=== PATIENT | male | born 1940 | race Caucasian/White ===

== ENCOUNTER 2017-06-26 10:07 | Inpatient (IN) | payer MEDICARE ==
[~2017-06-26] VITALS: Ht 172.7 cm; Wt 75.7 kg
[2017-06-26 08:59] VITALS: BP 164/77
[~2017-06-26 10:07] MED LIST: FOSINOPRIL SODI10 MG PO; LISINOPRIL10 MG PO; LOPID600 MG PO; SIMVASTATIN80 MG PO
--- NOTE | 2017-06-26 11:06 | Diagnostic Imaging Report ---
PROCEDURE: A single AP view of the chest. COMPARISON: Portable chest 04/23/2017. INDICATIONS: CARDIAC WORKUP FINDINGS: Lines/tubes: None. Lungs: No focal consolidation. No parenchymal mass. The lungs are hyperexpanded bilaterally. Nipple shadow projects over the left lung base. Pleura: There is no pleural effusion or pneumothorax. Heart and mediastinum: The heart and the mediastinum are unremarkable. Bones: No acute bony abnormality. Degenerative changes of the thoracic spine. Postoperative changes of the bilateral shoulders. IMPRESSION: No acute radiographic abnormality. Emphysematous changes. Dictated by: Fco Max M.D. on 06/26/2017 at 11:14 Electronically approved by: Fco Max M.D. on 06/26/2017 at 11:14
[2017-06-26 11:32] LABS: BASOPHILS # (AUTO) 0.1 (0.0-0.1); BASOPHILS % 1.1 % (0.0-1.0); EOSINOPHILS # (AUTO) 0.2 (0.0-0.4); EOSINOPHILS % 3.6 % (0.0-6.0); HEMATOCRIT 45.4 % (38.2-49.6); HEMOGLOBIN 14.8 g/dL (14.0-18.0); LYMPHOCYTES # (AUTO) 1.6 (1.0-3.2); LYMPHOCYTES % 24.2 % (18.0-39.1); MEAN CORPUSCULAR HEMOGLOBIN 31.8 pg (28-32); MEAN CORPUSCULAR HGB CONC 32.6 g/dL (31-35); MEAN CORPUSCULAR VOLUME 97.4 fL (81-99); MONOCYTES # (AUTO) 0.6 (0.2-0.8); MONOCYTES % 9.7 % (4.4-11.3); NEUTROPHILS # (AUTO) 4.1 (2.1-6.9); NEUTROPHILS % 61.1 % (38.7-80.0); PLATELET COUNT 207 x10e3/uL (140-360); RED BLOOD COUNT 4.66 x10e6/uL (4.3-5.7); RED CELL DISTRIBUTION WIDTH 13.2 % (11.7-14.4)
[2017-06-26 11:47] LABS: INR 0.89; PARTIAL THROMBOPLASTIN TIME 26.9 seconds (23.8-35.5); PROTHROMBIN TIME 12.5 seconds (11.9-14.5)
[2017-06-26 11:59] LABS: ALBUMIN 3.9 g/dL (3.5-5.0); ANION GAP 14.4 mmol/L (8-16); CALCIUM 9.3 mg/dL (8.4-10.2); CREATININE, SERUM 1.34 mg/dL (0.72-1.25); POTASSIUM 4.4 mmol/L (3.5-5.1)
[2017-06-26 12:09] LABS: CREATINE KINASE MB 3.1 ng/mL (0.00-5.00); TROPONIN I 0.023 ng/mL (0-0.300)
[2017-06-26] MEDS ORDERED: MORPHINE SULFATE 2 MG/ML SYR IV STA (12:29)
[2017-06-26] MEDS ORDERED: ONDANSETRON HCL INJ 2 MG/ML VIAL IV STA (12:29)
[2017-06-26] MEDS ORDERED: METFORMIN HCL500 MG PO ×2 (12:56)
[2017-06-26] MEDS ORDERED: ASPIR 8181 MG PO (12:56)
[2017-06-26] MEDS ORDERED: ATORVASTATIN CA20 MG PO (12:56)
[2017-06-26] MEDS ORDERED: GABAPENTIN100 MG PO (12:56)
[2017-06-26] MEDS ORDERED: HEPARIN 25,000U/0.45% NS 250ML 1,300 UNIT in SODIUM CHLORIDE 0.9% 250ML 0 ML IV SCH (15:00)
[2017-06-26] MEDS ORDERED: HEPARIN SOD (PORCINE) 5,000 UNIT/ML VIAL IV ONE (15:00)
[2017-06-26] MEDS ORDERED: HEPARIN 25,000U/0.45% NS 250ML 250 ML IV SCH (15:15)
[2017-06-26] MEDS ORDERED: DEXTROSE 50% SYRINGE 50 ML IV PRN (15:45)
[2017-06-26] MEDS ORDERED: ONDANSETRON HCL INJ 2 MG/ML VIAL IV PRN (15:45)
[2017-06-26] MEDS: HEPARIN 25,000U/0.45% NS 250ML 1,300 UNIT in SODIUM CHLORIDE 0.9% 250ML 0 ML IV SCH (15:47)
--- NOTE | 2017-06-26 16:01 | Consultation ---
DATE OF CONSULTATION: June 26, 2017 CARDIOLOGY CONSULTATION REQUESTING PHYSICIAN: Dr. Carrillo REASON FOR CONSULTATION: Peripheral arterial disease. HISTORY OF PRESENT ILLNESS: This is a 76-year-old man with severe peripheral arterial disease who presents with left leg pain. He reports that he had a fall 2 weeks ago after which he developed pain in his left leg followed by coolness as well as worsening discoloration. He denies any chest pain, shortness of breath, palpitations, edema, orthopnea or PND. Bilateral lower extremity arterial Doppler done in the ER revealed complete occlusion of his left SFA stent with distal reconstitution. PAST MEDICAL HISTORY 1. Peripheral arterial disease. 2. Diabetes mellitus. 3. Hyperlipidemia. 4. Hypertension. 5. COPD. ALLERGIES: NO KNOWN DRUG ALLERGIES. MEDICATIONS: Please see medication list. SOCIAL HISTORY: He quit smoking this year. No alcohol. FAMILY HISTORY: Noncontributory. PHYSICAL EXAMINATION: VITAL SIGNS: Temperature 96.8 degrees, pulse 80, respiratory rate 16, blood pressure 175/83, oxygen saturation 99% on room air. GENERAL: Awake, well-developed, well-nourished man in no acute distress. HEENT: Normocephalic and atraumatic. Pupils are equal. No scleral icterus. NECK: Supple. No thyromegaly or cervical lymphadenopathy. No carotid bruit. LUNGS: Clear to auscultation bilaterally. No wheezes or crackles. CARDIOVASCULAR: Normal rate, regular rhythm. No murmur. Normal S1 and S2. ABDOMEN: Soft. Nontender and nondistended. EXTREMITIES: No edema. Left lower extremity below the knee is slightly cool to palpation. There is marked erythema of the left forefoot with some changes concerning for early gangrene on the left 4th digit. LABS: WBC 6.6, hemoglobin 14.8, hematocrit 45.4, platelets 207. Sodium 139, potassium 4.4, chloride 107, CO2 22, BUN 28, creatinine 1.34. EKG: Sinus arrhythmia with right bundle-branch block. CHEST X-RAY: No acute radiographic abnormality. Emphysematous changes. IMPRESSION 1. Critical limb ischemia of the left lower extremity. 2. Peripheral arterial disease with 50% to 74% stenosis of the right popliteal artery as well as occlusion of the left superficial femoral artery stent with distal reconstitution suggested by noninvasive Doppler evaluation. 3. Hypertension. 4. Diabetes mellitus. 5. Hyperlipidemia. 6. Chronic obstructive pulmonary disease. RECOMMENDATIONS: Start heparin drip. Plan for peripheral angiogram tomorrow. In the meantime, continue home cardiac medications. Hold metformin, given need for contrast. Job#: [id number]
[2017-06-26] MEDS: SODIUM CHLORIDE 0.9% 1000ML 1,000 ML IV SCH ×2 (18:03→23:33)
[2017-06-26] MEDS: MORPHINE SULFATE 5 MG/ML VIAL IV PRN (20:21)
[2017-06-26 20:52] VITALS: BP 164/77
[2017-06-27] VITALS (21 sets, daily range): BP systolic 102–168; BP diastolic 55–91
[2017-06-27] MEDS: MORPHINE SULFATE 5 MG/ML VIAL IV PRN ×2 (00:49→06:22)
[2017-06-27 06:58] LABS: BASOPHILS # (AUTO) 0.1 (0.0-0.1); BASOPHILS % 1.2 % (0.0-1.0); EOSINOPHILS # (AUTO) 0.2 (0.0-0.4); HEMOGLOBIN 14.1 g/dL (14.0-18.0); LYMPHOCYTES # (AUTO) 1.9 (1.0-3.2); LYMPHOCYTES % 28.6 % (18.0-39.1); MEAN CORPUSCULAR HEMOGLOBIN 31.4 pg (28-32); MEAN CORPUSCULAR HGB CONC 32.8 g/dL (31-35); MEAN CORPUSCULAR VOLUME 95.8 fL (81-99); MONOCYTES # (AUTO) 0.7 (0.2-0.8); MONOCYTES % 10.4 % (4.4-11.3); NEUTROPHILS # (AUTO) 3.8 (2.1-6.9); NEUTROPHILS % 56.5 % (38.7-80.0); PLATELET COUNT 195 x10e3/uL (140-360); RED BLOOD COUNT 4.49 x10e6/uL (4.3-5.7); RED CELL DISTRIBUTION WIDTH 13.2 % (11.7-14.4)
[2017-06-27 07:24] LABS: ANION GAP 15.9 mmol/L (8-16); BLOOD UREA NITROGEN 25 mg/dL (7-26); BUN/CREATININE RATIO 24 (6-25); CALCIUM 8.7 mg/dL (8.4-10.2); CARBON DIOXIDE 19 mmol/L (22-29); CHLORIDE 108 mmol/L (98-107); CREATININE, SERUM 1.06 mg/dL (0.72-1.25); EST GLOMERULAR FILTRATION RATE > 60 ML/MIN (60-); GLUCOSE 127 mg/dL (74-118); POTASSIUM 4.9 mmol/L (3.5-5.1); SODIUM 138 mmol/L (136-145)
[2017-06-27] MEDS: SODIUM CHLORIDE 0.9% 1000ML 1,000 ML IV SCH ×5 (08:36→20:09)
[2017-06-27] MEDS ORDERED: GABAPENTIN 100 MG CAP PO PRN (12:45)
[2017-06-27] MEDS ORDERED: LIDOCAINE HCL 2% LOCAL 20 ML VIAL ONE (13:32)
[2017-06-27] MEDS ORDERED: HEPARIN SOD/SOD CHLORIDE 2,000 ML ONE (13:32)
[2017-06-27] MEDS ORDERED: IOPAMIDOL 370 MG/ML 200 ML INFUS..BTL INJ ONE (13:33)
[2017-06-27] MEDS ORDERED: MIDAZOLAM HCL 2 MG/2 ML VIAL ONE (13:42)
[2017-06-27] MEDS ORDERED: FENTANYL CITRATE/PF 100MCG/2 ML INJ ONE (13:42)
[2017-06-27] MEDS ORDERED: HEPARIN SOD (PORCINE) 1000 UNIT/ML 30ML ONE (13:42)
[2017-06-27] MEDS ORDERED: ALTEPLASE 50 MG/VIAL (29 MILLION IU) IV ONE ×2 (14:06→14:15)
--- NOTE | 2017-06-27 15:24 | Operative Report ---
DATE OF PROCEDURE: June 27, 2017 INDICATIONS: Peripheral arterial disease with acute limb ischemia of the left lower extremity. PROCEDURES PERFORMED: 1. Abdominal aorta catheter placement and abdominal aortogram. 2. Third order catheter placement in the right femoral artery and left superficial femoral artery and lateral extremity angiogram. 3. Primary thrombectomy of the left superficial femoral artery. 4. Initiation of the left femoral artery transcatheter lysis. COMPLICATIONS: None. RECOMMENDATIONS: Overnight lysis with reassessment and reperfusion and definitive therapy for in-stent re-stenosis of the left femoral artery stent. Access obtained in the right femoral artery. A 6-Maltese sheath was placed. Abdominal aortogram demonstrated large abdominal aortic aneurysm. Iliac arteries had mild disease. Left femoral artery appeared to be occluded. The catheter was then advanced in the right femoral artery and left superficial femoral artery stent. Thrombosis of the left femoral artery stent was noted. Infrapopliteal vessels not well seen. The decision was made to intervene on the left femoral artery stent thrombosis. The sheath was exchanged to a 6-Maltese 45 cm sheath advanced in the right femoral artery, left superficial femoral artery. The thrombosed lesions were aspirated with primary thrombectomy. A trans catheter lysis catheter was introduced with initiation of 10 mg of intra-arterial tPA bolus followed by 0.5 mg of tPA per hour along with intra-arterial heparin. The sheath and the catheter were secured in place. Patient transferred to ICU in stable condition. Job#: [id number]
[2017-06-27] MEDS ORDERED: SODIUM CHLORIDE 0.9% IV PRN ×7 (16:15→16:30)
[2017-06-27] MEDS ORDERED: ALTEPLASE RECOMBINANT IV PRN ×7 (16:15→16:30)
[2017-06-27] MEDS ORDERED: HYDRALAZINE HCL 20 MG/ML VIAL IV PRN (16:30)
[2017-06-27] MEDS ORDERED: PROMETHAZINE 12.5MG/ NACL 0.9% 12.5 MG/50 ML BAG IV PRN (16:30)
[2017-06-27] MEDS ORDERED: HYDROMORPHONE 1MG/1ML INJ IV PRN (16:30)
[2017-06-27] MEDS: GEMFIBROZIL 600 MG TAB PO SCH (17:46)
[2017-06-27] MEDS: HEPARIN 25,000U/0.45% NS 250ML 1,300 UNIT in SODIUM CHLORIDE 0.9% 250ML 0 ML IV SCH (17:46)
[2017-06-27 18:41] LABS: BASOPHILS # (AUTO) 0.1 (0.0-0.1); EOSINOPHILS # (AUTO) 0.1 (0.0-0.4); EOSINOPHILS % 2.1 % (0.0-6.0); HEMATOCRIT 42.3 % (38.2-49.6); LYMPHOCYTES # (AUTO) 1.5 (1.0-3.2); LYMPHOCYTES % 23.8 % (18.0-39.1); MEAN CORPUSCULAR HEMOGLOBIN 31.5 pg (28-32); MEAN CORPUSCULAR HGB CONC 33.1 g/dL (31-35); MEAN CORPUSCULAR VOLUME 95.1 fL (81-99); MONOCYTES # (AUTO) 0.7 (0.2-0.8); MONOCYTES % 10.5 % (4.4-11.3); NEUTROPHILS # (AUTO) 3.9 (2.1-6.9); NEUTROPHILS % 62.3 % (38.7-80.0); PLATELET COUNT 203 x10e3/uL (140-360); RED BLOOD COUNT 4.45 x10e6/uL (4.3-5.7); RED CELL DISTRIBUTION WIDTH 13.5 % (11.7-14.4)
[2017-06-27] MEDS: METFORMIN HCL 500 MG TAB PO SCH (20:09)
[2017-06-27] MEDS: ATORVASTATIN 40 MG TAB PO SCH (20:09)
[2017-06-27] MEDS: HYDROMORPHONE 2MG/ML INJ IV PRN ×2 (20:21→22:54)
[2017-06-27] MEDS ORDERED: ATORVASTATIN 20 MG TAB PO SCH (21:00)
[2017-06-27 21:24] LABS: INR 0.98; PROTHROMBIN TIME 13.5 seconds (11.9-14.5)
[2017-06-27 21:29] LABS: PARTIAL THROMBOPLASTIN TIME 128.9 seconds (23.8-35.5)
[2017-06-28] VITALS (49 sets, daily range): BP systolic 105–178; BP diastolic 61–123
[2017-06-28] MEDS: HYDROMORPHONE 2MG/ML INJ IV PRN ×5 (01:13→23:23)
[2017-06-28 06:01] LABS: BASOPHILS % 0.5 % (0.0-1.0); EOSINOPHILS # (AUTO) 0.1 (0.0-0.4); EOSINOPHILS % 1.3 % (0.0-6.0); HEMATOCRIT 41.5 % (38.2-49.6); HEMOGLOBIN 13.7 g/dL (14.0-18.0); LYMPHOCYTES # (AUTO) 1.3 (1.0-3.2); LYMPHOCYTES % 17.5 % (18.0-39.1); MEAN CORPUSCULAR HEMOGLOBIN 31.9 pg (28-32); MEAN CORPUSCULAR VOLUME 96.5 fL (81-99); MONOCYTES # (AUTO) 0.7 (0.2-0.8); MONOCYTES % 9.1 % (4.4-11.3); NEUTROPHILS # (AUTO) 5.3 (2.1-6.9); NEUTROPHILS % 71.2 % (38.7-80.0); PLATELET COUNT 186 x10e3/uL (140-360); RED CELL DISTRIBUTION WIDTH 13.2 % (11.7-14.4)
[2017-06-28 06:13] LABS: INR 1.01; PROTHROMBIN TIME 13.8 seconds (11.9-14.5)
[2017-06-28 06:28] LABS: BLOOD UREA NITROGEN 22 mg/dL (7-26); BUN/CREATININE RATIO 21 (6-25); CALCIUM 8.6 mg/dL (8.4-10.2); CARBON DIOXIDE 18 mmol/L (22-29); CHLORIDE 108 mmol/L (98-107); CREATININE, SERUM 1.07 mg/dL (0.72-1.25); EST GLOMERULAR FILTRATION RATE > 60 ML/MIN (60-); GLUCOSE 142 mg/dL (74-118); SODIUM 138 mmol/L (136-145)
[2017-06-28] MEDS: GEMFIBROZIL 600 MG TAB PO SCH ×2 (07:30→16:30)
[2017-06-28] MEDS: MORPHINE SULFATE 5 MG/ML VIAL IV PRN ×3 (08:30→21:54)
[2017-06-28] MEDS ORDERED: SIMVASTATIN 80 MG TAB PO SCH (09:00)
[2017-06-28] MEDS: ASPIRIN 81 MG CHEW TAB PO SCH (09:00)
[2017-06-28] MEDS: METFORMIN HCL 500 MG TAB PO SCH ×2 (09:00→21:50)
[2017-06-28] MEDS: FOSINOPRIL SODIUM 10 MG TAB PO SCH (09:00)
[2017-06-28] MEDS ORDERED: DIPHENHYDRAMINE HCL INJ 1 ML ONE (09:43)
[2017-06-28] MEDS ORDERED: DIPHENHYDRAMINE HCL INJ 50 MG/ML VIAL IV ONE (10:00)
[2017-06-28] MEDS: SODIUM CHLORIDE 0.9% 1000ML 1,000 ML IV SCH (10:21)
--- NOTE | 2017-06-28 11:25 | Progress Note ---
DATE: June 28, 2017 CARDIOLOGY PROGRESS NOTE SUBJECTIVE: Patient denies chest pain or shortness of breath. He underwent peripheral angiogram by Dr. Azam Gipson yesterday with primary thrombectomy of the left superficial femoral artery as well as initiation of left femoral artery transcatheter lysis. OBJECTIVE VITAL SIGNS: Temperature 97.8 degrees, pulse 79, respiratory rate 18, blood pressure 143/77, oxygen saturation 96% on room air. GENERAL: Awake, alert, in no acute distress. LUNGS: Clear to auscultation bilaterally. No wheezes or crackles. CARDIOVASCULAR: Normal rate, regular rhythm. No murmur. Normal S1 and S2. ABDOMEN: Soft. Nontender. EXTREMITIES: No edema. Bilateral lower extremities are warm to palpation. He continues to have discoloration of the left forefoot and toes. CARDIAC MEDICATIONS 1. Atorvastatin 80 mg p.o. nightly. 2. Lisinopril 10 mg p.o. daily. 3. Aspirin 81 mg p.o. daily. 4. Heparin drip. 5. TPA. LABS: WBC 7.4, hemoglobin 13.7, hematocrit 41.5, platelets 186. Sodium 138, potassium 5, chloride 108, CO2 18, BUN 22, creatinine 1.07. TELEMETRY: Normal sinus rhythm. IMPRESSION 1. Critical limb ischemia of the left lower extremity, status post transcatheter lysis of occluded left superficial femoral artery stent. 2. Peripheral arterial disease with 50% to 74% stenosis of the right popliteal artery suggested by noninvasive Doppler evaluation. 3. Hypertension. 4. Diabetes mellitus. 5. Hyperlipidemia. 6. Chronic obstructive pulmonary disease. RECOMMENDATIONS: Continue heparin drip as well as tPA. Plan for peripheral angiogram today to assess response to transcatheter lysis. Continue current cardiac medications otherwise. Thank you for this consult. We will continue to follow. Job#: [id number]
[2017-06-28] MEDS ORDERED: HEPARIN SOD/SOD CHLORIDE 2,000 ML ONE (15:37)
[2017-06-28] MEDS ORDERED: LIDOCAINE HCL 2% LOCAL 20 ML VIAL ONE (15:37)
[2017-06-28] MEDS ORDERED: IOPAMIDOL 370 MG/ML 200 ML INFUS..BTL INJ ONE (15:38)
[2017-06-28] MEDS ORDERED: FENTANYL CITRATE/PF 100MCG/2 ML INJ ONE (15:38)
[2017-06-28] MEDS ORDERED: MIDAZOLAM HCL 2 MG/2 ML VIAL ONE (15:39)
[2017-06-28] MEDS ORDERED: NITROGLYCERIN/D5W 200 MCG/ML 250 ML ONE (15:54)
[2017-06-28] MEDS ORDERED: HEPARIN SOD (PORCINE) 1000 UNIT/ML 30ML ONE (15:57)
[2017-06-28] MEDS ORDERED: IOPAMIDOL 300MG/ML 50ML INFUS..BTL IV ONE (16:20)
[2017-06-28] MEDS: HEPARIN 25,000U/0.45% NS 250ML 1,300 UNIT in SODIUM CHLORIDE 0.9% 250ML 0 ML IV SCH (17:16)
[2017-06-28] MEDS: ATORVASTATIN 40 MG TAB PO SCH (21:50)
[2017-06-28] MEDS: DIPHENHYDRAMINE HCL INJ 50 MG/ML VIAL IV PRN (23:36)
[2017-06-28] MEDS ORDERED: ARTIFICIAL TEARS (OPTH) 15 ML BTL OU PRN (23:45)
[2017-06-29] VITALS (23 sets, daily range): BP systolic 118–164; BP diastolic 59–91
[2017-06-29] MEDS: HYDROMORPHONE 2MG/ML INJ IV PRN ×6 (02:59→23:56)
[2017-06-29] MEDS: DIPHENHYDRAMINE HCL INJ 50 MG/ML VIAL IV PRN ×2 (06:44→12:22)
[2017-06-29] MEDS: METFORMIN HCL 500 MG TAB PO SCH ×2 (08:19→20:16)
[2017-06-29] MEDS: ASPIRIN 81 MG CHEW TAB PO SCH (08:19)
[2017-06-29] MEDS: GEMFIBROZIL 600 MG TAB PO SCH ×2 (08:19→16:15)
[2017-06-29] MEDS: HEPARIN 25,000U/0.45% NS 250ML 1,300 UNIT in SODIUM CHLORIDE 0.9% 250ML 0 ML IV SCH (08:19)
[2017-06-29] MEDS: FOSINOPRIL SODIUM 10 MG TAB PO SCH (09:00)
[2017-06-29 09:16] LABS: BASOPHILS % 0.5 % (0.0-1.0); EOSINOPHILS # (AUTO) 0.1 (0.0-0.4); EOSINOPHILS % 1.6 % (0.0-6.0); HEMATOCRIT 34.5 % (38.2-49.6); HEMOGLOBIN 11.7 g/dL (14.0-18.0); LYMPHOCYTES # (AUTO) 1.2 (1.0-3.2); LYMPHOCYTES % 18.8 % (18.0-39.1); MEAN CORPUSCULAR HEMOGLOBIN 32.1 pg (28-32); MEAN CORPUSCULAR HGB CONC 33.9 g/dL (31-35); MEAN CORPUSCULAR VOLUME 94.5 fL (81-99); MONOCYTES # (AUTO) 0.8 (0.2-0.8); MONOCYTES % 12.3 % (4.4-11.3); NEUTROPHILS # (AUTO) 4.3 (2.1-6.9); NEUTROPHILS % 66.5 % (38.7-80.0); PLATELET COUNT 153 x10e3/uL (140-360); RED BLOOD COUNT 3.65 x10e6/uL (4.3-5.7); RED CELL DISTRIBUTION WIDTH 13.2 % (11.7-14.4)
[2017-06-29 09:25] LABS: INR 1.01; PROTHROMBIN TIME 13.8 seconds (11.9-14.5)
[2017-06-29 09:26] LABS: PARTIAL THROMBOPLASTIN TIME 31.3 seconds (23.8-35.5)
[2017-06-29 09:34] LABS: ALANINE AMINOTRANSFERASE 13 IU/L (0-55); ALBUMIN 3.1 g/dL (3.5-5.0); ALBUMIN/GLOBULIN RATIO 1.2 (0.8-2.0); ALKALINE PHOSPHATASE 78 IU/L (40-150); ANION GAP 13.3 mmol/L (8-16); BLOOD UREA NITROGEN 18 mg/dL (7-26); BUN/CREATININE RATIO 19 (6-25); CALCIUM 8.2 mg/dL (8.4-10.2); CARBON DIOXIDE 20 mmol/L (22-29); CHLORIDE 108 mmol/L (98-107); CREATININE, SERUM 0.95 mg/dL (0.72-1.25); EST GLOMERULAR FILTRATION RATE > 60 ML/MIN (60-); GLUCOSE 152 mg/dL (74-118); POTASSIUM 4.3 mmol/L (3.5-5.1); SODIUM 137 mmol/L (136-145)
--- NOTE | 2017-06-29 12:26 | Progress Note ---
DATE: June 29, 2017 CARDIOLOGY PROGRESS NOTE SUBJECTIVE: Patient denies chest pain or shortness of breath. He reports his foot feels better. He underwent repeat peripheral angiogram yesterday with balloon angioplasty of the left SFA, popliteal and peroneal arteries. OBJECTIVE VITAL SIGNS: Temperature 98.9 degrees, pulse 57, respiratory rate 18, blood pressure 143/82, oxygen saturation 98% on room air. GENERAL: Awake, alert, in no acute distress. LUNGS: Clear to auscultation bilaterally. No wheezes or crackles. CARDIOVASCULAR: Normal rate, regular rhythm. No murmur. Normal S1 and S2. ABDOMEN: Soft, nontender. EXTREMITIES: No edema. Left lower extremity is warm to palpation. He continues to have discoloration of the toes on the left foot. Right groin soft without hematoma or bruit. Some ecchymoses are noted. CARDIAC MEDICATIONS 1. Gemfibrozil 600 mg p.o. b.i.d. 2. Aspirin 81 mg p.o. daily. 3. Atorvastatin 80 mg p.o. nightly. 4. Lisinopril 10 mg p.o. daily. LABS: Sodium 137, potassium 4.3, chloride 108, CO2 20, BUN 18, creatinine 0.95. WBC 6.4, hemoglobin 11.7, hematocrit 34.5, platelets 153. TELEMETRY: Normal sinus rhythm. IMPRESSION 1. Critical limb ischemia of the left lower extremity status post transcatheter lysis of occluded left superficial femoral artery stent. 2. Peripheral arterial disease with 50% to 74% stenosis of the right popliteal artery suggested by noninvasive Doppler evaluation. 3. Hypertension. 4. Diabetes mellitus. 5. Hyperlipidemia. 6. Chronic obstructive pulmonary disease. RECOMMENDATIONS: Start Xarelto. Continue antiplatelet therapy. Continue remainder of patient's cardiac medications. He may be transferred out of the ICU. PT evaluation given patient's indicates he has had prior falls in the past. Thank you for this consult. We will continue to follow. Job#: [id number] EFRA
--- NOTE | 2017-06-29 14:27 | Operative Report ---
DATE OF PROCEDURE: June 28, 2017 PROCEDURES PERFORMED: 1. Third-order catheter placement with unilateral extremity angiogram. 2. Primary thrombectomy of the left femoral artery. 3. Removal of lysis catheter. 4. Angioplasty of the left femoral artery. 5. Angioplasty of the peroneal artery. COMPLICATIONS: None. INDICATIONS: Peripheral arterial disease with acute limb ischemia. BLOOD LOSS: 50 mL. RECOMMENDATIONS: Xarelto and Plavix for anticoagulation. Existing sheath was used for angiogram from the right femoral artery to the left superficial femoral artery with yazdanism of flow. However, residual thrombus was noted in the femoral artery, for which primary thrombectomy with aspiration was performed. The lysis catheter was removed. Balloon angioplasty using a 2.0 as well as a 2.5 mm balloon in the left peroneal artery was performed. Drug-coated balloon angioplasty using a 4 mm balloon in the left femoral and popliteal arteries was performed. Excellent 1-vessel runoff was noted to the peroneal artery, which then reconstituted in the posterior tibial artery with the vessels to the left foot. Right groin sheath was exchanged to a short 6-Serbian sheath that was secured in place for removal under manual pressure. Patient transferred to ICU in stable condition. Job#: [id number] EV
[2017-06-29] MEDS: SODIUM CHLORIDE 0.9% 1000ML 1,000 ML IV SCH (15:32)
[2017-06-29] MEDS: RIVAROXABAN 15 MG TABLET PO SCH (16:15)
[2017-06-29] MEDS: ATORVASTATIN 40 MG TAB PO SCH (20:16)
[2017-06-30] VITALS (7 sets, daily range): BP systolic 116–159; BP diastolic 52–75
[2017-06-30] MEDS: DIPHENHYDRAMINE HCL INJ 50 MG/ML VIAL IV PRN ×2 (00:53→09:25)
[2017-06-30] MEDS: SODIUM CHLORIDE 0.9% 1000ML 1,000 ML IV SCH (00:53)
[2017-06-30 08:06] LABS: ANION GAP 11.2 mmol/L (8-16); BLOOD UREA NITROGEN 15 mg/dL (7-26); BUN/CREATININE RATIO 16 (6-25); CARBON DIOXIDE 24 mmol/L (22-29); CHLORIDE 108 mmol/L (98-107); CREATININE, SERUM 0.91 mg/dL (0.72-1.25); EST GLOMERULAR FILTRATION RATE > 60 ML/MIN (60-); GLUCOSE 130 mg/dL (74-118); POTASSIUM 4.2 mmol/L (3.5-5.1); SODIUM 139 mmol/L (136-145)
[2017-06-30] MEDS: ASPIRIN 81 MG CHEW TAB PO SCH (09:24)
[2017-06-30] MEDS: GEMFIBROZIL 600 MG TAB PO SCH ×2 (09:24→17:21)
[2017-06-30] MEDS: METFORMIN HCL 500 MG TAB PO SCH ×2 (09:24→20:17)
[2017-06-30] MEDS: FOSINOPRIL SODIUM 10 MG TAB PO SCH (09:24)
[2017-06-30] MEDS: MORPHINE SULFATE 5 MG/ML VIAL IV PRN (09:25)
--- NOTE | 2017-06-30 11:25 | Diagnostic Imaging Report ---
Portable chest x-ray CPT code 10279 INDICATION: CHF/COPD COMPARISON: Chest x-ray 04/23/2017, chest x-ray 06/26/2017 FINDINGS: Frontal view of the chest obtained at 0852 hours. The cardiac silhouette is top normal in size. Aortic ectasia is stable. The pulmonary vascular marking are normal. Calcified hilar lymph nodes are stable. The lungs demonstrate diffuse hyperinflation. A vertical line across the lateral left chest could be a skinfold. There is no evidence of discrete mass or infiltrate. A granuloma in the left lower lobe is stable. The costophrenic angles are sharp. The osseous structures are stable with 3 anchors in the right humeral head. IMPRESSION: 1. Potential skin fold across the left chest. Recommend repeat imaging for confirmation and to exclude pneumothorax. 2. Pulmonary hyperinflation consistent with COPD. 3. No evidence of CHF. Signed by: Dr. Frandy Willson MD on 06/30/2017 11:21 AM
[2017-06-30] MEDS: CLOPIDOGREL BISULFATE 75 MG TAB PO SCH (11:45)
--- NOTE | 2017-06-30 14:53 | Progress Note ---
DATE: CARDIOLOGY PROGRESS NOTE SUBJECTIVE: Patient reports pain in his legs. Otherwise, any chest pain or shortness of breath. OBJECTIVE VITAL SIGNS: Temperature 98.6, pulse 84, respiratory rate 18, blood pressure 137/65, oxygen saturation 96% on room air. GENERAL: Alert and oriented times 3. Resting comfortably in bed. Does not appear to be in any acute distress. is at the bedside. LUNGS: Diminished breath sounds in the posterior lower lobes. Otherwise, clear to auscultation. No wheezing. No rhonchi or crackles. CARDIOVASCULAR: Normal regular rate and rhythm. Normal S1 and S2. ABDOMEN: Rounded, soft and nontender. LOWER EXTREMITIES: Two plus pitting edema. One plus pedal pulses bilateral lower extremities. Warm to touch bilaterally. Discoloration to the toes on the left foot. Ecchymosis noted around the right groin. Otherwise, no obvious signs of bleeding. CARDIOVASCULAR MEDICATIONS 1. 200 mg p.o. b.i.d. 2. Hydralazine 20 mg q.2 h. p.r.n. for hypertension. 3. 50 mg p.o. daily. 4. Atorvastatin 80 p.o. at night. 5. Aspirin 81 p.o. daily. 6. Gemfibrozil 600 mg p.o. b.i.d. 7. Monopril 10 mg p.o. daily. LABS WBC 6.42, hemoglobin 11.7, hematocrit 34.5, and platelets 153,000. Sodium 139, potassium 4.2, BUN 15, creatinine 0.91, GFR greater than 60. Calcium 8. Telemetry is sinus rhythm. IMPRESSION 1. Critical limb ischemia on the left lower extremity: Status post transcatheter lysis of occluded left superficial femoral artery stent. 2. Peripheral arterial disease with 50% to 70% stenosis in the right popliteal artery. 3. Hypertension. 4. Diabetes mellitus. 5. Hyperlipidemia. 6. Chronic obstructive pulmonary disease. RECOMMENDATIONS: Continue with the above list of cardiac medications. Continue antiplatelet therapy and the rest of the above list of cardiac medications. Assess the patient for rehabilitation per the request of his . He has had multiple falls at home. He is unable to perform his own ADLs. Will continue to follow closely. DICTATED BY JIM TRIPP NP Job#: [id number] RI
[2017-06-30] MEDS: RIVAROXABAN 15 MG TABLET PO SCH (17:22)
[2017-06-30] MEDS: ATORVASTATIN 40 MG TAB PO SCH (20:17)
[2017-06-30] MEDS: HYDROMORPHONE 2MG/ML INJ IV PRN (23:26)
[2017-07-01 05:13] VITALS: BP 123/68
[2017-07-01] MEDS: GEMFIBROZIL 600 MG TAB PO SCH (07:30)
[2017-07-01 08:20] VITALS: BP 104/94
[2017-07-01 08:57] LABS: BASOPHILS % 0.8 % (0.0-1.0); EOSINOPHILS # (AUTO) 0.2 (0.0-0.4); HEMATOCRIT 34.8 % (38.2-49.6); HEMOGLOBIN 11.3 g/dL (14.0-18.0); LYMPHOCYTES # (AUTO) 0.9 (1.0-3.2); LYMPHOCYTES % 18.7 % (18.0-39.1); MEAN CORPUSCULAR HEMOGLOBIN 31.1 pg (28-32); MEAN CORPUSCULAR HGB CONC 32.5 g/dL (31-35); MEAN CORPUSCULAR VOLUME 95.9 fL (81-99); MONOCYTES # (AUTO) 0.6 (0.2-0.8); MONOCYTES % 11.7 % (4.4-11.3); NEUTROPHILS # (AUTO) 3.1 (2.1-6.9); NEUTROPHILS % 64.4 % (38.7-80.0); PLATELET COUNT 183 x10e3/uL (140-360); RED BLOOD COUNT 3.63 x10e6/uL (4.3-5.7); RED CELL DISTRIBUTION WIDTH 13.3 % (11.7-14.4)
[2017-07-01] MEDS: CLOPIDOGREL BISULFATE 75 MG TAB PO SCH (09:00)
[2017-07-01] MEDS: METFORMIN HCL 500 MG TAB PO SCH (09:00)
[2017-07-01] MEDS: ASPIRIN 81 MG CHEW TAB PO SCH (09:00)
[2017-07-01] MEDS: FOSINOPRIL SODIUM 10 MG TAB PO SCH (09:00)
[2017-07-01 09:10] LABS: ALANINE AMINOTRANSFERASE 17 IU/L (0-55); ALBUMIN 3.2 g/dL (3.5-5.0); ALBUMIN/GLOBULIN RATIO 1.1 (0.8-2.0); ALKALINE PHOSPHATASE 85 IU/L (40-150); ANION GAP 11.9 mmol/L (8-16); BLOOD UREA NITROGEN 12 mg/dL (7-26); BUN/CREATININE RATIO 12 (6-25); CALCIUM 8.6 mg/dL (8.4-10.2); CARBON DIOXIDE 25 mmol/L (22-29); CHLORIDE 104 mmol/L (98-107); EST GLOMERULAR FILTRATION RATE > 60 ML/MIN (60-); GLUCOSE 149 mg/dL (74-118); POTASSIUM 3.9 mmol/L (3.5-5.1); SODIUM 137 mmol/L (136-145)
--- NOTE | 2017-07-01 10:57 | Discharge Summary ---
ADMIT DIAGNOSES 1. Acute left lower extremity arterial occlusion. 2. Peripheral artery disease. 3. Chronic obstructive pulmonary disease. 4. Hypertensive heart disease. 5. Type 2 diabetes mellitus. 6. Acute renal failure. DISCHARGE DIAGNOSES 1. Status post left lower extremity angiography with primary thrombectomy of left superficial femoral artery. 2. Status post left lower extremity angiography with primary thrombectomy of left femoral artery angioplasty of left femoral and left peroneal arteries. 3. Peripheral artery disease. 4. Acute renal failure, resolved. 5. Hypertensive heart disease. 6. Type 2 diabetes mellitus. 7. Chronic obstructive pulmonary disease. HOSPITAL COURSE: This is a 76-year-old white man who was initially admitted to [facility] with a diagnosis of acute arterial occlusion of the left lower extremity. During this hospitalization, patient underwent angiography twice, the first on June 27 and the second on June 29, 2017. On the 1st angiography done on the 27 of June, he underwent left lower extremity angiography with primary thrombectomy of the left superficial femoral artery. Then on June 29, 2017, patient underwent left lower extremity angiography with primary thrombectomy of the left femoral artery and angioplasty of the left femoral and left peroneal arteries. Patient tolerated the procedure quite well. The whipper beater who performed the procedure was Dr. Azam Gipson. Cardiology recommended Xarelto and Plavix for anticoagulation. The patient is also on aspirin 81 mg daily. Patient tolerated his procedures quite well. Patient's acute renal failure resolved during this hospitalization. On admission patient's BUN and creatinine were 28 and 1.34 respectively. After gentle intravenous fluids, the patient's renal function improved to a BUN and creatinine of 12 and 1.0 respectively. Patient's condition on discharge was stable. During this hospitalization, the patient did receive daily physical therapy. DISCHARGE MEDICATIONS 1. Xarelto 15 mg daily. 2. Aspirin 81 mg daily. 3. Clopidogrel 75 mg daily. 4. Stuart 10 per 325 one b.i.d. p.r.n. pain, 30 prescribed. 5. Metformin 500 mg in the morning and 1000 mg at night. 6. Monopril 10 mg daily. 7. Gemfibrozil 600 mg b.i.d. 8. Atorvastatin 80 mg nightly. 9. Gabapentin 600 mg b.i.d. FOLLOWUP INSTRUCTIONS: The patient is instructed to follow up with Dr. Gipson within 1 week, or perhaps he can receive some Xarelto samples at that time. Patient is instructed to follow up with Dr. Robert Nguyen, his primary care physician, within 2 weeks. GORDO LUNA MD Job#: [id number] EV cc: MD ROBERT MENDOZA, DO [facility]
== END 2017-07-01 11:07 | disposition home or self-care (01) | DRG 253 ==
LOC: ER 10:07 → ERHOLD 17:10 → MED/SURG 20:23 → ICU 06-27 17:29 → MED/SURG3 06-29 22:48
PROC: 04H Lower Arteries, Insertion (ICD-10-PCS; principal; 2017-06-26)
PROC: 047L3ZZ Dilation of Left Femoral Artery, Percutaneous Approach (ICD-10-PCS; 2017-06-27)
PROC: 04CL3ZZ Extirpation of Matter from Left Femoral Artery, Percutaneous Approach (ICD-10-PCS; 2017-06-27)
PROC: 3E05317 Introduction of Other Thrombolytic into Peripheral Artery, Percutaneous Approach (ICD-10-PCS; 2017-06-27)
PROC: B41D1ZZ Fluoroscopy of Aorta and Bilateral Lower Extremity Arteries using Low Osmolar Contrast (ICD-10-PCS; 2017-06-27)
PROC: 047L3ZZ Dilation of Left Femoral Artery, Percutaneous Approach (ICD-10-PCS; 2017-06-28)
PROC: 047U3ZZ Dilation of Left Peroneal Artery, Percutaneous Approach (ICD-10-PCS; 2017-06-28)
PROC: 04CL3ZZ Extirpation of Matter from Left Femoral Artery, Percutaneous Approach (ICD-10-PCS; 2017-06-28)
DX: I70.211 Atherosclerosis of native arteries of extremities with intermittent claudication, right leg (principal); N17.9 Acute kidney failure, unspecified; E11.51 Type 2 diabetes mellitus with diabetic peripheral angiopathy without gangrene; I11.9 Hypertensive heart disease without heart failure; I70.201 Unspecified atherosclerosis of native arteries of extremities, right leg; J44.9 Chronic obstructive pulmonary disease, unspecified; I70.202 Unspecified atherosclerosis of native arteries of extremities, left leg; Z79.4 Long term (current) use of insulin; Z86.718 Personal history of other venous thrombosis and embolism; Z79.01 Long term (current) use of anticoagulants
CPT/HCPCS: 36140; 36415; 37211; 37232; 71010; 75625; 75710; 77002; 80048; 80053; 82550; 82553; 82948; 83880; 84484; 85025; 85347; 85610; 85730; 93005; 93925; 96360; 96374; 99284; C1769; C2623; J1170; J1200; J1644; J2001; J2250; J2270; J2405; J2997; J7030; J7050; Q9967

== ENCOUNTER 2020-05-17 22:24 | Inpatient (IN) | payer MEDICARE ==
[~2020-05-17] VITALS: Ht 172.7 cm; Wt 65.8 kg
[~2020-05-17 22:24] MED LIST changes: +ASPIR 8181 MG PO; +ATORVASTATIN CA20 MG PO; +GABAPENTIN100 MG PO; +METFORMIN HCL500 MG PO
--- OUTSIDE RECORDS SUMMARY | 2020-05-17 22:50 | XMS REPORT | Continuity of Care Document ---
Author Author [facility] Organization [facility] Address [address] [place] [address] Phone Unavailable Care Team Providers Care Needle Maker Name Role Phone SHAYNA VALENCIA M.D. Attphys Unavailable LEVI, SOUHEIL Attphys Unavailable Skinny GARCIA Attphys Unavailable LEVI, SOUHEIL Admphys Unavailable Payers Payer Name Policy Type Policy Number Effective Date Expiration Date S ource Problems Condition Name Condition Details Condition Category Status Onset Date Resolution Date Last Treatment Date Treating Clinician Comments Source Arteriosclerosis of coronary artery Arteriosclerosis of coronary artery Problem Active [facility] Allergies, Adverse Reactions, Alerts Allergy Name Allergy Type Status Severity Reaction(s) Onset Date Inacti ve Date Treating Clinician Comments Source No Known Allergies DA Active U 2016-11-29 00:00:[address] [facility] Medications This patient has no known medications. Vital Signs Vital Name Observation Time Observation Value Comments Source BP Systolic 2017-08-27 11:31:00 96 mm[Hg] [facility] BP Diastolic 2017-08-27 11:31:00 61 mm[Hg] [facility] Height 2017-08-27 11:31:00 68 [in_us] [facility] Weight 2017-08-27 11:31:00 150 [lb_av] [facility] Body Mass Index Calculated 2017-08-27 11:31:00 22.81 kg/m2 [facility] Procedures Procedure Date / Time Performed Performing Clinician Sourc e [QLH] CBC (INCLUDES DIFF/PLT) 2017-08-13 00:00:00 [facility] [Q] ADD ON BASIC METABOLIC PANEL 2017-08-13 00:00:00 [facility] [O] Xray CHEST 2 VIEWS FRONTAL AND LATERAL 2017-08-13 00:00:00 [facility] History of coronary artery bypass graft [facility] Encounters Start Date/Time End Date/Time Encounter Type Admission Type [facility] Care Department Encounter ID Source 2017-08-27 10:45:00 2017-08-27 10:45:00 Appointment; SHAYNA VALENCIA M.D. NAHAS, CESAR, M.D. [facility] Cardiothoracic and Vascular Surgery - Dr Malgorzata Valencia [id number] [facility] Results Test Description Test Time Test Comments Results Result Comments Source XRAY Chest 2 views [id number] 2017-08-24 13:15:00 Cli nical Indication: - I25.10 Atherosclerotic heart disease of nativecoronary artery without angina pectoris.Comparison: July 28, 2017FINDINGS:PA and lateral chest radiographs were obtained. The lungs are adequatelyinflated and clear. COPD changes are noted. There is no focal airspaceconsolidation, pleural effusion or pneumothorax. The trachea is midline andpatent. Cardiac silhouette is within n ormal limits. Median sternotomy wires arenoted. A left subclavian dual-lead pacemaker is noted and unchanged. The bonystructures are unremarkable. [place] screws are noted in the bilateral humeralheads.IMPRESSION:No acute radiographic abnormality of the thorax.SL: [id number] by: Julian Peck MDDictated Date/time: 08/24/17 13:31Electronically Signed by: Julian Peck MD 08/24/1812:32[facility]AL [facility] ([facility]) [place] [address] Patient Name: JOSSELINE OBANDO MR #: [id number] : 1940 Age/Sex: 76/M Req #: [id number] Adm Physician: TODD LEVI MD Ordered by: GORDO LUNA MD Report #: [id number] Location: MED/SURG3 Room/Bed: [facility] Procedure: [id number] DX/CHEST SINGLE (PORTABLE) Exam Date: 06/30/17 Exam Time: 1105 REPORT STATUS: Signed Portable chest x-ray CPT code 08579 INDICATION: CHF/COPD COMPARISON: Chest x-ray 04/23/2017, chest x-ray 06/26/2017 FINDINGS: Frontal view of the chest obtained at 0852 hours. The cardiac silhouette is top normal in size. Aortic ectasia is stable. The pulmonary vascular marking are normal. Calcified hilar lymph nodes are stable. The lungs demonstrate diffuse hyperinflation. A vertical line across the lateral left chest could be a skinfold. There is no evidence of discrete mass or infiltrate. A granuloma in the left lower lobe is stable. The costophrenic angles are sharp. The osseous structures are stable with 3 anchors in the right humeral head. IMPRESSION: 1. Potential skin fold across the left chest. Recommend repeat imaging for confirmation and to exclude pneumothorax. 2. Pulmonary hyperinflation consistent with COPD. 3. No evidence of CHF. Signed by: Dr. Marsha Capone MD on 06/30/2017 11:21 AM Dictated By: MARSHA CAPONE MD 1121 Transcribed By: JAS on 06/30/17 1121 COPY TO: GORDO LUNA MD CHEST SINGLE (NOT PORTABLE) [place] [address] Patient Name: JOSSELINE OBANDO MR #: [id number] : 1940 Age/Sex: 76/M Req #: [id number] Adm Physician: Ordered by: RULA SPAULDING NP Report #: [id number] Location: ER Room/Bed: Procedure: [id number] DX/CHEST SINGLE (NOT PORTABLE) Exam Date: 06/26/17 Exam Time: 1045 REPORT STATUS: Signed PROCEDURE: A single AP view of the chest. COMPARISON: Portable chest 04/23/2017. INDICATIONS: CARDIAC WORKUP FINDINGS: Lines/tubes: None. Lungs: No focal consolidation. No parenchymal mass. The lungs are hyperexpanded bilaterally. Nipple shadow projects over the left lung base. Pleura: There is no pleural effusion or pneumothorax. Heart and mediastinum: The heart and the mediastinum are unremarkable. Bones: No acute bony abnormality. Degenerative changes of the thoracic spine. Postoperative changes of the bilateral shoulders. IMPRESSION: No acute radiographic abnormality. Emphysematous changes. Dictated by: Emilee Yang M.D. on 06/26/2017 at 11:14 Electronically approved by: Emilee Yang M.D. on 06/26/2017 at 11:14 Dictated By: EMILEE YANG MD 1114 Transcribed By: TD on 06/26/17 1114 COPY TO: RULA SPAULDING NP CT BRAIN WO [place] [address] Patient Name: JOSSELINE OBANDO MR #: [id number] : 1940 Age/Sex: 76/M Req #: [id number] Adm Physician: Ordered by: NORM GARCIA MD Report #: [id number] Location: ER Room/Bed: Procedure: [id number] CT/CT BRAIN WO Exam Date: 04/23/17 Exam Time: 1448 REPORT STATUS: Signed Examination: CT BRAIN WITHOUT CONTRAST History:76-year-old male with confusion, altered mental status and weakness. Comparison studies:Head CT performed September 17, 2015. Technique: Axial images were obtained from the skull base to the vertex. Coronal and sagittal images reconstructed from the axial data. Intravenous contrast: None Findings: Scalp: No abnormalities. Bones: No fractures, blastic or lytic lesions. Brain sulci: Appropriate for age. Ventricles: Normal in size and configuration. No hydrocephalus. Extra-axial space: No abnormalities. Parenchyma: Again demonstrated are mild patchy areas of hypoattenuation in the periventricular and subcortical white matter, nonspecific. No masses, hemorrhage, or acute or chronic cortical based vascular insults. A chronic lacunar infarct is demonstrated in the superior right putamen. Sellar/suprasellar region: No abnormalities. Craniocervical junction: Patent foramen magnum. No Chiari one malformation. Incidental findings: Athe rosclerotic calcification of the cavernous and supraclinoid internal carotid and V4 segments of the bilateral vertebral arteries. Impression: 1. No new or acute intracranial abnormality. No change from prior head CT performed September 17, 2015. 2. Unchanged mild chronic microvascular ischemic change. 3. 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 Signed by: Dr. Dax Mota M.D. on 04/23/2017 3:13 PM Dictated By: DAX SEGURA MD 12 Transcribed By: JAS on 04/23/17 151 COPY TO: NORM GARCIA MD CHEST [facility] (PORTABLE) [place] [address] Patient Name: JOSSELINE OBANDO MR #: [id number] : 1940 Age/Sex: 76/M Req #: [id number] Adm Physician: Ordered by: NORM GARCIA MD Report #: [id number] Location: Room/Bed: Procedure: [id number] DX/CHEST SINGLE (PORTABLE) Exam Date: 04/23/17 Exam Time: 1448 REPORT STATUS: Signed PROCEDURE: CHEST SINGLE (PORTABLE) TECHNIQUE: Portable AP chest INDICATION: Weakness COMPARISON: None. FINDINGS: Lungs are clear and symmetrically inflated. No pleural effusions. Normal heart size and mediastinal contours for technique. Intact skeleton. Bilateral humerus ligamentous anchors. CONCLUSION: No acute abnormality. Dictated by: Sean Bruno M.D. on 04/23/2017 at 15:23 Electronically approved by: Sean Bruno M.D. on 04/23/2017 at 15:23 Dictated By: SEAN BRUNO MD 1523 Transcribed By: TD on 04/23/17 1523 COPY TO: NORM GARCIA MD
--- NOTE | 2020-05-17 23:13 | Emergency Department Note ---
History of Present Illnes History of Present Illness Chief Complaint: Respiratory History of Present Illness This is a 79 year old male in via [facility] for c/o shortness of breath, pt had a 10 minute episode of shortness of breath, pt has a hx of COPD and is on 2L of O2 via nasal cannula at home, pt does not have any complaints at this time but insisted on him coming to the ED. DENIES CHEST PAIN . Historian: Patient Arrival Mode: [facility] EMS Treatment SUBSTANCE ABUSE RN: IV Additional Treatment SUBSTANCE ABUSE RN: 20 G Right Forearm Onset (how long ago): hour(s) (1) Location: NONE Quality: SHORTNESS OF BREATH Radiation: Reports non-radiation Severity: mild Onset quality: sudden Duration (how long): hour(s) (LASTED ONLY 10 MINUTES) Timing of current episode: unable to specify, other Progression: resolved Chronicity: recurrent Context: Denies recent illness, Denies recent surgery Relieving factors: none Exacerbating factors: none Associated symptoms: Reports denies other symptoms Past Medical/Family History Physician Review I have reviewed the patient's past medical and family history. Any updates have been documented here. 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 BRONCHITIS PNEUMONIA NEUROPATHY Other Surgery: ROTATOR CUFFS BILAT BACK LEFT LUNG BIOPSY LEFT LEG Social History Smoking Cessation: Former smoker Alcohol Use: None Any Illegal Drug Use: No Family History Family history of heart diseas: No Other Last Tetanus: UNK Review of Systems Review of Systems Constitutional: Reports no symptoms EENTM: Reports no symptoms Cardiovascular: Reports no symptoms Respiratory: Reports as per HPI Gastrointestinal: Reports no symptoms Genitourinary: Reports no symptoms Musculoskeletal: Reports no symptoms Integumentary: Reports no symptoms Neurological: Reports no symptoms Psychological: Reports no symptoms Endocrine: Reports no symptoms Hematological/Lymphatic: Reports no symptoms Physical Exam Related Data Allergies: Coded Allergies: No Known Allergies (Unverified , 10/25/13) Triage Vital Signs Vital Signs Date Time Temp Pulse Resp B/P (MAP) Pulse Ox O2 Delivery O2 Flow Rate FiO2 05/17/20 22:43 98.1 62 16 102/56 100 Nasal Cannula 2.0 Vital signs reviewed: Yes Physical Exam CONSTITUTIONAL Constitutional: Present well-developed, Present well-nourished HENT HENT: Present normocephalic, Present atraumatic, Present oropharynx clear/moist, Present nose normal HENT L/R: Present left ext ear normal, Present right ext ear normal EYES Eyes: Reports PERRL, Reports conjunctivae normal NECK Neck: Present ROM normal PULMONARY Pulmonary: Present effort normal, Present breath sounds normal CARDIOVASCULAR Cardiovascular: Present regular rhythm, Present heart sounds normal, Present capillary refill normal, Present normal rate GASTROINTESTINAL Abdominal: Present soft, Present nontender, Present bowel sounds normal GENITOURINARY Genitourinary: Present exam deferred SKIN Skin: Present warm, Present dry MUSCULOSKELETAL Musculoskeletal: Present ROM normal NEUROLOGICAL Neurological: Present alert, Present oriented x 3, Present no gross motor or s ensory deficits PSYCHOLOGICAL Psychological: Present mood/affect normal, Present judgement normal Results Laboratory Laboratory Laboratory Tests Test 05/17/20 23:00 White Blood Count 7.64 x10e3/uL (4.8-10.8) Red Blood Count 4.29 x10e6/uL (4.3-5.7) Hemoglobin 12.4 g/dL (14.0-18.0) Hematocrit 40.7 % (38.2-49.6) Mean Corpuscular Volume 94.9 fL (81-99) Mean Corpuscular Hemoglobin 28.9 pg (28-32) Mean Corpuscular Hemoglobin Concent 30.5 g/dL (31-35) Red Cell Distribution Width 14.3 % (11.7-14.4) Platelet Count 198 x10e3/uL (140-360) Neutrophils (%) (Auto) 73.6 % (38.7-80.0) Lymphocytes (%) (Auto) 13.6 % (18.0-39.1) Monocytes (%) (Auto) 10.7 % (4.4-11.3) Eosinophils (%) (Auto) 1.2 % (0.0-6.0) Basophils (%) (Auto) 0.5 % (0.0-1.0) Neutrophils # (Auto) 5.6 (2.1-6.9) Lymphocytes # (Auto) 1.0 (1.0-3.2) Monocytes # (Auto) 0.8 (0.2-0.8) Eosinophils # (Auto) 0.1 (0.0-0.4) Basophils # (Auto) 0.0 (0.0-0.1) Absolute Immature Granulocyte (auto 0.03 x10e3/uL (0-0.1) Sodium Level 138 mmol/L (136-145) Potassium Level 5.4 mmol/L (3.5-5.1) Chloride Level 107 mmol/L (98-107) Carbon Dioxide Level 19 mmol/L (22-29) Anion Gap 17.4 mmol/L (8-16) Blood Urea Nitrogen 40 mg/dL (7-26) Creatinine 1.46 mg/dL (0.72-1.25) Estimat Glomerular Filtration Rate 47 ML/MIN (60-) BUN/Creatinine Ratio 27 (6-25) Glucose Level 146 mg/dL (74-118) Calcium Level 8.8 mg/dL (8.4-10.2) Creatine Kinase 44 IU/L (30-200) Creatine Kinase MB 2.00 ng/mL (0-5.0) Troponin I 0.026 ng/mL (0-0.300) B-Type Natriuretic Peptide 131.1 pg/mL (0-100) Lab results reviewed: Yes Imaging Imaging results reviewed: Yes Impressions Procedure: [id number] CT/CT CHEST WO Exam Date: 05/18/20 Exam Time: 0055 REPORT STATUS: Signed EXAM: CT Chest WITHOUT contrast INDICATION: Mediastinal mass questioned on chest x-ray. COMPARISON: TECHNIQUE: Chest was scanned utilizing a multidetector helical scanner from the lung apex through the level of the adrenal glands without administration of IV contrast. Absence of intravenous contrast decreases sensitivity for detection of lymphadenopathy and vascular pathology. Coronal and sagittal reformations were obtained. Routine protocol was performed. IV CONTRAST: None COMPLICATIONS: None FINDINGS: Exam limited due to lack of IV contrast. Mediastinum/lungs/pleura: Left chest wall cardiac device with leads in the right atrium and right ventricle. Confluent right suprahilar opacity has mass effect on the right upper lobe segmental bronchi with variable narrowing and occlusion. Patchy and nodular opacity in the anteromedial right upper lobe could represent extension of tumor versus postobstructive pneumonia. 3 pulmonary nodules in the right lower lobe measuring up to 1.2 cm. Irregular nodular pleural thickening, greater on the left. Trace right pleural effusion. Centrilobular emphysema. Diffuse bronchial wall thickening. Confluent opacity excuse to efface the mediastinal fat extending into the precarinal and right paratracheal region. Enlarged subcarinal lymph node measuring up to 1.8 cm. HEART: Heart is nonenlarged. There is a epicardial soft tissue implants with calcification. Severe multivessel coronary artery disease. UPPER ABDOMEN: Thickened and nodular left adrenal gland with possible nodule measuring up to 2.2 cm. Scattered calcification granulomas in the spleen. BONES: Patchy sclerosis with cortical erosion of the margin of the anterior fourth left rib concerning for metastasis. Focal osseous destruction of the posterior eighth left rib. IMPRESSION: Limited exam due to lack of IV contrast. 1. Findings concerning for metastatic malignancy. Dominant confluent right suprahilar mass which extends into the mediastinum and right lung with metastases to the lung, bilateral pleura, and ribs. Trace right effusion, likely malignant. Possible left adrenal metastasis. Differential includes lung cancer (bronchogenic carcinoma versus small cell carcinoma) versus metastases from unknown primary. Recommend pulmonology consultation and soft tissue sampling. 2. Truncation of right upper lobe subsegmental bronchi with patchy opacities in the anteromedial right upper lobe which could represent extension of tumor versus postobstructive pneumonia. 3. Centrilobular emphysema. Signed by: Emilee Estrella MD on 05/18/2020 1:49 AM Dictated By: EMILEE ESTRELLA MD 8 Transcribed By: JAS on 05/18/20148 COPY TO: SERGEY PEOPLES MD~ Procedure: [id number] DX/CHEST SINGLE (PORTABLE) Exam Date: 05/17/20 Exam Time: 2300 REPORT STATUS: Signed EXAMINATION: CHEST SINGLE (PORTABLE) INDICATION: SOB COMPARISON: X-ray 06/30/2017. FINDINGS: Left chest wall cardiac device with leads projecting over the right atrium and right ventricle. New prominent right suprahilar opacity. Blunting of the costophrenic angle. Linear edge along the left hemithorax appears somewhat similar to 2017, likely skinfold. Vessels appear to extend beyond its margin. No definite pneumothorax. Sternotomy wires unchanged. Heart is nonenlarged. IMPRESSION: 1. New right confluent suprahilar opacity and small right pleural effusion. Malignancy and infection are considered. Recommend CT chest with contrast for further evaluation. 2. Linear edge along the left hemithorax appears somewhat similar to 2017. Vessels appear to extend beyond its margin. Favored represent skin fold, rather than pneumothorax, but can be assessed on the above recommended CT. Results were discussed with Dr. Peoples on 05/18/2020 at 12:40 AM. Signed by: Emilee Estrella MD on 05/18/2020 12:42 AM Dictated By: EMILEE ESTRELLA MD Transcribed By: JAS on 05/18/2041 COPY TO: SERGEY PEOPLES MD~ Procedures 12 Lead ECG Interpretation ECG Interpretation : ECG: ECG 1 Infantryman: Interpreted by ED physician Date: May 17, 2020 Time: 22:57 Rhythm: paced (ATRIAL) Rate: normal BPM: 63 Conduction: right bundle branch block ST segments normal: No (NON PSECIFIC CHANGES) T waves normal: Yes Clinical Impression: abnormal ECG Assessment & Plan Medical Decision Making [facility] PT WITH SOB LASTING ONLY 10 MINUTES CBC, CMP, EKG, CXR, BNP, CARDIAC ENZYMES ORDERED TO EVAL FOR MYOCARDIAL INFARCTI ON, PNEUMONIA, PULMONARY EDEMA, ELECTROLYTE ABNORMALITY I SPOKE WITH DR Donaldo LEVI, PLACE IN OBS, HYDRATE WITH IV FLUIDS Assessment & Plan Final Impression: (1) Lung mass (2) Dyspnea (3) Dehydration (4) Hyperkalemia Depart Disposition: ADMITTED Last Vital Signs Date Time Temp Pulse Resp B/P (MAP) Pulse Ox O2 Delivery O2 Flow Rate FiO2 05/17/20 22:43 98.1 62 16 102/56 100 Nasal Cannula 2.0 Home Meds Reported Medications Aspirin (ASPIR 81) 81 Mg Tablet.dr, 81 TAB PO DAILY 06/26/17 Atorvastatin Calcium (ATORVASTATIN CALCIUM) 20 Mg Tablet, 80 MG PO HS, #30 TAB 06/26/17 Gabapentin (GABAPENTIN) 100 Mg Capsule, 200 MG PO BID PRN for PAIN 06/26/17 Metformin Hcl (METFORMIN HCL) 500 Mg Tablet, 1000 MG PO HS, #60 TAB 06/26/17 Metformin Hcl (METFORMIN HCL) 500 Mg Tablet, 500 MG PO QAM, #60 TAB 06/26/17 Fosinopril Sodium (FOSINOPRIL SODIUM) 10 Mg Tablet, 10 MG PO DAILY 10/25/13 Gemfibrozil (LOPID) 600 Mg Tablet, 600 MG PO BID 10/25/13 SERGEY PEOPLES MD May 17, 2020 23:12
[2020-05-17 23:15] LABS: BASOPHILS % 0.5 % (0.0-1.0); EOSINOPHILS # (AUTO) 0.1 (0.0-0.4); EOSINOPHILS % 1.2 % (0.0-6.0); HEMATOCRIT 40.7 % (38.2-49.6); HEMOGLOBIN 12.4 g/dL (14.0-18.0); LYMPHOCYTES % 13.6 % (18.0-39.1); MEAN CORPUSCULAR HEMOGLOBIN 28.9 pg (28-32); MEAN CORPUSCULAR HGB CONC 30.5 g/dL (31-35); MEAN CORPUSCULAR VOLUME 94.9 fL (81-99); MONOCYTES # (AUTO) 0.8 (0.2-0.8); MONOCYTES % 10.7 % (4.4-11.3); NEUTROPHILS # (AUTO) 5.6 (2.1-6.9); NEUTROPHILS % 73.6 % (38.7-80.0); PLATELET COUNT 198 x10e3/uL (140-360); RED BLOOD COUNT 4.29 x10e6/uL (4.3-5.7); RED CELL DISTRIBUTION WIDTH 14.3 % (11.7-14.4)
[2020-05-17 23:29] LABS: ANION GAP 17.4 mmol/L (8-16); CALCIUM 8.8 mg/dL (8.4-10.2); CREATININE, SERUM 1.46 mg/dL (0.72-1.25); POTASSIUM 5.4 mmol/L (3.5-5.1)
--- NOTE | 2020-05-17 23:37 | Diagnostic Imaging Report ---
EXAMINATION: CHEST SINGLE (PORTABLE) INDICATION: SOB COMPARISON: X-ray 06/30/2017. FINDINGS: Left chest wall cardiac device with leads projecting over the right atrium and right ventricle. New prominent right suprahilar opacity. Blunting of the costophrenic angle. Linear edge along the left hemithorax appears somewhat similar to 2017, likely skinfold. Vessels appear to extend beyond its margin. No definite pneumothorax. Sternotomy wires unchanged. Heart is nonenlarged. IMPRESSION: 1. New right confluent suprahilar opacity and small right pleural effusion. Malignancy and infection are considered. Recommend CT chest with contrast for further evaluation. 2. Linear edge along the left hemithorax appears somewhat similar to 2017. Vessels appear to extend beyond its margin. Favored represent skin fold, rather than pneumothorax, but can be assessed on the above recommended CT. Results were discussed with Dr. Richardson on 05/18/2020 at 12:40 AM. Signed by: Fco Lucas MD on 05/18/2020 12:42 AM
[2020-05-18] VITALS (8 sets, daily range): BP systolic 0–150; BP diastolic 61–89
[2020-05-18] MEDS ORDERED: SODIUM CHLORIDE 0.9% 500ML 500 ML IV ONE (00:45)
--- NOTE | 2020-05-18 01:52 | Diagnostic Imaging Report ---
EXAM: CT Chest WITHOUT contrast INDICATION: Mediastinal mass questioned on chest x-ray. COMPARISON: TECHNIQUE: Chest was scanned utilizing a multidetector helical scanner from the lung apex through the level of the adrenal glands without administration of IV contrast. Absence of intravenous contrast decreases sensitivity for detection of lymphadenopathy and vascular pathology. Coronal and sagittal reformations were obtained. Routine protocol was performed. IV CONTRAST: None COMPLICATIONS: None FINDINGS: Exam limited due to lack of IV contrast. Mediastinum/lungs/pleura: Left chest wall cardiac device with leads in the right atrium and right ventricle. Confluent right suprahilar opacity has mass effect on the right upper lobe segmental bronchi with variable narrowing and occlusion. Patchy and nodular opacity in the anteromedial right upper lobe could represent extension of tumor versus postobstructive pneumonia. 3 pulmonary nodules in the right lower lobe measuring up to 1.2 cm. Irregular nodular pleural thickening, greater on the left. Trace right pleural effusion. Centrilobular emphysema. Diffuse bronchial wall thickening. Confluent opacity excuse to efface the mediastinal fat extending into the precarinal and right paratracheal region. Enlarged subcarinal lymph node measuring up to 1.8 cm. HEART: Heart is nonenlarged. There is a epicardial soft tissue implants with calcification. Severe multivessel coronary artery disease. UPPER ABDOMEN: Thickened and nodular left adrenal gland with possible nodule measuring up to 2.2 cm. Scattered calcification granulomas in the spleen. BONES: Patchy sclerosis with cortical erosion of the margin of the anterior fourth left rib concerning for metastasis. Focal osseous destruction of the posterior eighth left rib. IMPRESSION: Limited exam due to lack of IV contrast. 1. Findings concerning for metastatic malignancy. Dominant confluent right suprahilar mass which extends into the mediastinum and right lung with metastases to the lung, bilateral pleura, and ribs. Trace right effusion, likely malignant. Possible left adrenal metastasis. Differential includes lung cancer (bronchogenic carcinoma versus small cell carcinoma) versus metastases from unknown primary. Recommend pulmonology consultation and soft tissue sampling. 2. Truncation of right upper lobe subsegmental bronchi with patchy opacities in the anteromedial right upper lobe which could represent extension of tumor versus postobstructive pneumonia. 3. Centrilobular emphysema. Signed by: Fco Lucas MD on 05/18/2020 1:49 AM
[2020-05-18] MEDS ORDERED: ASPIRIN 81 MG CHEW TAB PO ONE (02:15)
[2020-05-18] MEDS ORDERED: SODIUM CHLORIDE 0.9% 1000ML 1,000 ML IV ONE (02:15)
--- OUTSIDE RECORDS SUMMARY | 2020-05-18 02:36 | XMS REPORT | Continuity of Care Document ---
Author Author [facility] Organization [facility] Address [address] [place] [address] Phone Unavailable Care Team Providers Care Range Aid Name Role Phone Nanda PEOPLES Attphys Unavailable SHAYNA VALENCIA M.D. Attphys Unavailable LEVI, SOUHEIL [...] Known Allergies DA Active U 2016-11-29 00:00:00 [facility] Medications This patient has no known medications. Vital Signs Vital Name Observation Time Observation Value Comments Source BP Systolic 2017-08-27 11:31:00 96 mm[Hg] [facility] BP Diastolic 2017-08-27 11:31:00 61 mm[Hg] [facility] Height 2017-08-27 11:31:00 68 [in_us] [facility] Weight 2017-08-27 11:31:00 150 [lb_av] [facility] Body Mass Index Calculated 2017-08-27 [...] Date/Time End Date/Time En[facility] En[facility] ID Source 2017-08-27 10:45:00 2017-08-27 10:45:00 Appointment; SHAYNA VALENCIA M.D. NAHAS, CESAR, M.D. [facility] Cardiothoracic and Vascular Surgery - Dr Malgorzata Valencia [id number] [facility] Results Test Description Test Time Test Comments Results Result Comments Source CT CHEST WO 2020-05-18 01:25:00 [facility] 1940 Sex: M [place] [address] Patient Name: JOSSELINE OBANDO MR #: [id number] : 1940 Age/Sex: 79/M Req #: [id number] Adm Physician: Ordered by: SERGEY PEOPLES MD Report #: [id number] Location: Room/Bed: Procedure: [id number] CT/CT CHEST WO Exam Date: 05/18/20 Exam Time: 0055 REPORT STATUS: Signed EXAM: CT Chest WITHOUT contrast INDICATION: Mediastinal mass questioned on chest x-ray. COMPARISON: TECHNIQUE: Chest was scanned utilizing a multidetector helical scanner from the lung apex through the level of the adrenal glands without administration of IV contrast. Absence of intravenous contrast decreases sensitivity for detection of lymphadenopathy and vascular pathology. Coronal and sagittal reformations were obtained. Routine protocol was performed. IV CONTRAST: None COMPLICATIONS: None FINDINGS: Exam limited due to lack of IV contrast. Mediastinum/lungs/pleura: Left chest wall cardiac device with leads in the right atrium and right ventricle. Confluent right suprahilar opacity has mass effect on the right upper lobe segmental bronchi with variable narrowing and occlusion. Patchy and nodular opacity in the anteromedial right upper lobe could represent extension of tumor versus postobstructive pneumonia. 3 pulmonary nodules in the right lower lobe measuring up to 1.2 cm. Irregular nodular pleural thickening, greater on the left. Trace right pleural effusion. Centrilobular emphysema. Diffuse bronchial wall thickening. Confluent opacity excuse to efface the mediastinal fat extending into the precarinal and right paratracheal region. Enlarged subcarinal lymph node measuring up to 1.8 cm. HEART: Heart is nonenlarged. There is a epicardial soft tissue implants with calcification. Severe multivessel coronary artery disease. UPPER ABDOMEN: Thickened and nodular left adrenal gland with possible nodule measuring up to 2.2 cm. Scattered calcification granulomas in the spleen. BONES: Patchy sclerosis with cortical erosion of the margin of the anterior fourth left rib concerning for metastasis. Focal osseous destruction of the posterior eighth left rib. IMPRESSION: Limited exam due to lack of IV contrast. 1. Findings concerning for metastatic malignancy. Dominant confluent right suprahilar mass which extends into the mediastinum and right lung with metastases to the lung, bilateral pleura, and ribs. Trace right effusion, likely malignant. Possible left adrenal metastasis. Differential includes lung cancer (bronchogenic carcinoma versus small cell carcinoma) versus metastases from unknown primary. Recommend pulmonology consultation and soft tissue sampling. 2. Truncation of right upper lobe subsegmental bronchi with patchy opacities in the anteromedial right upper lobe which could represent extension of tumor versus postobstructive pneumonia. 3. Centrilobular emphysema. Signed by: Emilee Lucas MD on 05/18/2020 1:49 AM Dictated By: EMILEE LUCAS MD 8 Transcribed By: JAS on 05/18/20148 COPY TO: SERGEY PEOPLES MD CHEST SINGLE (PORTABLE) 2020-05-17 23:28:00 [facility] : 1940 Sex: M [place] [address] Patient Name: JOSSELINE OBANDO MR #: [id number] : 1940 Age/Sex: 79/M Req #: [id number] Adm Physician: Ordered by: SERGEY PEOPLES MD Report #: [id number] Location: ER Room/Bed: Procedure: [id number] DX/CHEST SINGLE (PORTABLE) Exam Date: 05/17/20 Exam Time: 2300 REPORT STATUS: Signed EXAMINATION: CHEST SINGLE (PORTABLE) INDICATION: SOB COMPARISON: X-ray 06/30/2017. FINDINGS: Left chest wall cardiac device with leads projecting over the right atrium and right ventricle. New prominent right suprahilar opacity. Blunting of the costophrenic angle. Linear edge along the left hemithorax appears somewhat similar to 2017, likely skinfold. Vessels appear to extend beyond its margin. No definite pneumothorax. Sternotomy wires unchanged. Heart is nonenlarged. IMPRESSION: 1. New right confluent suprahilar opacity and small right pleural effusion. Malignancy and infection are considered. Recommend CT chest with contrast for further evaluation. 2. Linear edge along the left hemithorax appears somewhat similar to 2017. Vessels appear to extend beyond its margin. Favored represent skin fold, rather than pneumothorax, but can be assessed on the above recommended CT. Results were discussed with Dr. Peoples on 05/18/2020 at 12:40 AM. Signed by: Emilee Lucas MD on 05/18/2020 12:42 AM Dictated By: EMILEE LUCAS MD Transcribed By: JAS on 05/18/2041 COPY TO: SERGEY PEOPLES MD XRAY Chest 2 views [id number] 2017-08-24 13:15:00 Cli nical Indication: - I25.10 [...] noted and unchanged. The bonystructures are unremarkable. [place] screws are noted in the bilateral humeralheads.IMPRESSION:No acute radiographic abnormality of the thorax.SL: [id number]--Kkiu by: Julian Peck MDDictated Date/time: 08/24/17 13:31Electronically Signed by: Julian Peck MD 08/24/1812:32FINAL REPORT [facility] CHEST SINGLE (PORTABLE) [place] [address] Patient Name: JOSSELINE OBANDO #: [id number] : 1940 Age/Sex: 76/M Req #: [id number] Adm Physician: TODD LEVI MD Ordered by: GORDO LUNA MD Report #: [id number] Location: [facility]/SURG[facility] Room/Bed: [facility] Procedure: [id number] DX/CHEST SINGLE (PORTABLE) Exam Date: 06/30/17 Exam Time: 1105 REPORT STATUS: Signed Portable chest x-ray CPT code 85184 INDICATION: CHF/COPD COMPARISON: Chest x-ray 04/23/2017, chest [...] 11:21 AM Dictated By: MARSHA CAPONE MD 112 Transcribed By: JAS on 06/30/17 1121 COPY TO: GORDO LUNA MD CHEST SINGLE (NOT PORTABLE) [place] [address] Patient Name: JOSSELINE OBANDO MR #: [id number] : 1940 Age/Sex: 76/M Req #: [id number] Adm Physician: Ordered by: RULA SPAULDING NP Report #: [id number] Location: ER Room/Bed: Procedure: [id number] DX/CHEST SINGLE (NOT PORTABLE) Exam Date: 06/26/17 [...] COPY TO: RULA SPAULDING NP CT BRAIN [place] [id number] Patient Name: JOSSELINE OBANDO MR #: [id number] : 1940 Age/Sex: 76/M Req #: [id number] Adm Physician: Ordered by: NORM GARCIA MD Report #: [id number] Location: ER Room/Bed: Procedure: [id number] CT/CT BRAIN WO Exam Date: 04/23/17 Exam [...] 3:13 PM Dictated By: DAX SEGURA MD [id number] Transcribed By: JAS on 04/23/17 9068 COPY TO: NORM GARCIA MD CHEST SINGLE (PORTABLE) [place] [address] Patient Name: JOSSELINE OBANDO MR #: [id number] : 1940 Age/Sex: 76/M Req #: [id number] Adm Physician: Ordered by: NORM GARCIA MD Report #: [id number] Location: ER Room/Bed: Procedure: [id number] DX/CHEST SINGLE (PORTABLE) Exam Date: 04/23/17 Exam [...]
[2020-05-18 06:43] LABS: BASOPHILS % 0.6 % (0.0-1.0); EOSINOPHILS # (AUTO) 0.1 (0.0-0.4); EOSINOPHILS % 1.7 % (0.0-6.0); HEMATOCRIT 42.2 % (38.2-49.6); HEMOGLOBIN 12.6 g/dL (14.0-18.0); LYMPHOCYTES # (AUTO) 1.3 (1.0-3.2); LYMPHOCYTES % 20.1 % (18.0-39.1); MEAN CORPUSCULAR HEMOGLOBIN 28.9 pg (28-32); MEAN CORPUSCULAR HGB CONC 29.9 g/dL (31-35); MEAN CORPUSCULAR VOLUME 96.8 fL (81-99); MONOCYTES # (AUTO) 0.8 (0.2-0.8); NEUTROPHILS # (AUTO) 4.1 (2.1-6.9); NEUTROPHILS % 65.3 % (38.7-80.0); PLATELET COUNT 187 x10e3/uL (140-360); RED BLOOD COUNT 4.36 x10e6/uL (4.3-5.7); RED CELL DISTRIBUTION WIDTH 14.2 % (11.7-14.4)
[2020-05-18 06:58] LABS: ANION GAP 15.7 mmol/L (8-16); CALCIUM 8.7 mg/dL (8.4-10.2); CREATININE, SERUM 1.44 mg/dL (0.72-1.25); POTASSIUM 5.7 mmol/L (3.5-5.1)
[2020-05-18 07:17] LABS: CREATINE KINASE MB 2.2 ng/mL (0-5.0)
[2020-05-18] MEDS ORDERED: GABAPENTIN 100 MG CAP PO PRN (11:15)
[2020-05-18] MEDS: HYDROMORPHONE 1MG/1ML INJ IV PRN ×3 (11:25→21:57)
[2020-05-18] MEDS: FOSINOPRIL SODIUM 10 MG TAB PO SCH (12:23)
[2020-05-18 12:25] LABS: INR 0.98; PROTHROMBIN TIME 13.5 seconds (11.9-14.5)
[2020-05-18 15:33] LABS: CREATINE KINASE MB 2.3 ng/mL (0-5.0)
--- NOTE | 2020-05-18 17:59 | NUR ---
consent form signed for lung biopsy
--- NOTE | 2020-05-18 18:55 | NUR ---
Bedside rounds completed with morning nurse. Pt alert and oriented to name, lying in bed HOB 30 degrees. Denies pain at this time. O2 @ 2L via NC, sat 98%. at bedside. Informed NPO after midnight for tomorrow's biopsy. Call light within reach. Bed alarm on.
[2020-05-18] MEDS ORDERED: TEMAZEPAM 15 MG CAP PO PRN (21:00)
[2020-05-18] MEDS: METHYLPREDNISOLONE SOD SUCC 40 MG/ML VIAL 1ML IV SCH (21:45)
--- NOTE | 2020-05-18 23:25 | Consultation ---
DATE OF CONSULTATION: Pulmonary Consultation REASON FOR CONSULT: Lung mass. HISTORY OF PRESENT ILLNESS: Mr. Smith is a 79-year-old male who presented to the emergency room with worsening shortness of breath. The patient had an episode of shortness of breath 10 to 12 minutes and history of COPD. He is on 2 L nasal cannula oxygen at home. Does not have any other complaints at this time. He underwent CT of the chest without contrast on 05/18/2020, which is showing findings concerning for metastatic malignancy and a confluence mass in the upper lobe. Right lung images were reviewed. REVIEW OF SYSTEMS: GENERAL: Denies any fever or chills. HEAD: Denies any head trauma. ENT: Denies any earache. CVS: Denies any chest pain. RESPIRATORY: Shortness of breath. The rest of the review of systems are negative except as in HPI. PAST MEDICAL HISTORY: COPD, hypertension. FAMILY AND SOCIAL HISTORY: He smoked for 60 years, quit two years ago. PHYSICAL EXAMINATION: VITAL SIGNS: Temperature 98.6, pulse of 74, blood pressure 150/66, respiratory rate of 18. HEENT: Head is atraumatic, normocephalic. NECK: Supple. CHEST: Occasional wheezing. HEART: S1, S2 audible. ABDOMEN: Soft. EXTREMITIES: No pedal edema. NEUROLOGIC: Awake and alert. LABORATORY DATA: White count of 6000, hemoglobin 12.6, platelets 187. Chemistries; sodium 139, potassium 5.7, BUN 40, creatinine 1.44. CT of the chest showing lung mass and images reviewed. ASSESSMENT AND PLAN: Mr. Smith is a 79-year-old male, heavy smoker, has lung mass which is very suspicious for malignancy. Case discussed with Interventional Radiology, and order placed for Interventional Radiology to perform biopsy in a.m. I will also start the patient on nebulizer treatment and low-dose steroids because of wheezing and shortness of breath. Also, we will hold off on the antibiotic as at this point, does not seem like the patient has pneumonia. I have discussed with the patient's at bedside in detail. MD SALEEM Stokes/CLAUDE /[id number]
[2020-05-19] VITALS (7 sets, daily range): BP systolic 94–129; BP diastolic 45–91
[2020-05-19] MEDS: HYDROMORPHONE 1MG/1ML INJ IV PRN ×5 (02:45→22:15)
[2020-05-19] MEDS: BUDESONIDE 0.5MG/2 ML NEB INH SCH ×2 (07:00→19:00)
--- NOTE | 2020-05-19 07:00 | NUR ---
ASSUMED CARE. PATIENT RESTING IN BED. AWAKE AND ALERT. ACYANOTIC. NO DISTRESS NOTED. CALL LIGHT IN REACH. SIDE RAILS UP X2. BED LOW AND LOCKED. SPOUSE, KAYY, PRESENT AT BEDSIDE RESTING ON COUCH.
[2020-05-19] MEDS: ALBUTEROL/IPRATROPIUM 3 ML NEB NEB SCH ×3 (07:35→19:55)
[2020-05-19] MEDS: METHYLPREDNISOLONE SOD SUCC 40 MG/ML VIAL 1ML IV SCH ×2 (08:00→21:45)
[2020-05-19] MEDS: FOSINOPRIL SODIUM 10 MG TAB PO SCH (09:00)
[2020-05-19] MEDS ORDERED: CEFEPIME HCL 1 GM VIAL IV SCH (09:30)
[2020-05-19] MEDS: CEFEPIME 1GM/NS 0.9% 50 ML 50 ML IV SCH ×2 (10:59→22:00)
--- NOTE | 2020-05-19 11:58 | Progress Note ---
DATE: Pulmonary Followup SUBJECTIVE: The patient was supposed to get biopsy today, however, it was postponed by radiologist because he wants the patient to be off aspirin for 5 days. The patient's breathing has improved. He is denying any complaints of chest pain, shortness of breath is improved. PHYSICAL EXAMINATION: VITAL SIGNS: Temperature 97.5, pulse of 80, blood pressure 108/65, respiratory rate of 18, and O2 saturation 100% on 2 L. CHEST: Clear to auscultation bilaterally. No wheezing. HEART: S1, S2 audible. NEUROLOGIC: Awake and alert. LABORATORY DATA: White count of 6000, hemoglobin 12.6. Chemistry reviewed. This is from 05/18. ASSESSMENT/PLAN: Mr. Simth is a 79-year-old male high likelihood of malignancy with a mass in the lung. CT-guided biopsy ordered. However, the radiologist reported that radiologist will do the biopsy after 5 days because of aspirin use. Continue the patient on nebulizer treatment and IV Solu-Medrol. I will also start the patient on IV antibiotics for possibility of postobstructive pneumonia. Oxygen as needed to keep the O2 saturation more than or equal to 92%. MD SALEEM Stokes/CLAUDE /[id number]
[2020-05-19 13:24] LABS: ANION GAP 17.1 mmol/L (8-16); CREATININE, SERUM 1.36 mg/dL (0.72-1.25); POTASSIUM 5.1 mmol/L (3.5-5.1)
--- NOTE | 2020-05-19 16:09 | NUR ---
Nutrition Screen Note RD Recommendation for Physician: -Continue current diet as ordered Plan of Care: RD following, monitoring for tolerance and adequacy Nutrition reason for involvement: Nutrition Risk Trigger Primary Diagnose(s): dehydration, dyspnea, hyperkalemia, and lung mass PMH: COPD, hypertension Ht: 68 in Wt: 145 lb BMI: 22.0 kg/m2 IBW:[address] Assessment: (05/19/20) Chart reviewed. Labs and meds reviewed. Pt is a 79 year old male admitted with dehydration, dyspnea, hyperkalemia, and lung mass. Mainly spoke to family member at bedside at time of visit. Pt is eating most of his meals per family member. 50-75% meal intake recorded during admission. Family member was unsure of weight loss or his usual weight. Per chart, last recorded weight was 167 lbs in Jun 2017. Pt currently has a weight of 145 lbs in chart. No N/V/D/C or chewing/swallowing issues. Will continue to monitor. Current Diet: 1800 ADA Malnutrition Evaluation (05/19/20) The patient does not meet criteria for a specified degree of malnutrition at this time. Will re-evaluate at follow-up as appropriate. Diet Education Needs Assessment: RD is available for diet education as needed Nutrition Care Level: low Signed: Ashley Reis, HINA, LD
--- NOTE | 2020-05-19 19:00 | NUR ---
Completed bedside rounds with morning nurse. Pt alert and oriented to name, lying in bed HOB 30 degrees. Denies pain at this time. O2 @ 2L via NC, sat 97%. at bedside. Call light within reach. Bed alarm on.
[2020-05-20] VITALS (7 sets, daily range): BP systolic 129–160; BP diastolic 77–104
[2020-05-20] MEDS: ALBUTEROL/IPRATROPIUM 3 ML NEB NEB SCH ×2 (01:10→07:33)
[2020-05-20] MEDS: HYDROMORPHONE 1MG/1ML INJ IV PRN ×5 (03:40→21:38)
[2020-05-20 05:42] LABS: BASOPHILS % 0.2 % (0.0-1.0); EOSINOPHILS % 0.2 % (0.0-6.0); HEMATOCRIT 38.5 % (38.2-49.6); HEMOGLOBIN 11.8 g/dL (14.0-18.0); LYMPHOCYTES # (AUTO) 0.2 (1.0-3.2); LYMPHOCYTES % 2.8 % (18.0-39.1); MEAN CORPUSCULAR HEMOGLOBIN 28.9 pg (28-32); MEAN CORPUSCULAR HGB CONC 30.6 g/dL (31-35); MEAN CORPUSCULAR VOLUME 94.4 fL (81-99); MONOCYTES # (AUTO) 0.1 (0.2-0.8); MONOCYTES % 1.7 % (4.4-11.3); NEUTROPHILS % 94.5 % (38.7-80.0); PLATELET COUNT 184 x10e3/uL (140-360); RED BLOOD COUNT 4.08 x10e6/uL (4.3-5.7); RED CELL DISTRIBUTION WIDTH 14.4 % (11.7-14.4)
[2020-05-20 06:04] LABS: ANION GAP 15.1 mmol/L (8-16); CALCIUM 9.2 mg/dL (8.4-10.2); CREATININE, SERUM 1.25 mg/dL (0.72-1.25); POTASSIUM 5.1 mmol/L (3.5-5.1)
[2020-05-20] MEDS: BUDESONIDE 0.5MG/2 ML NEB INH SCH ×2 (07:00→19:00)
--- NOTE | 2020-05-20 07:05 | NUR ---
ASSUMED CARE. PATIENT RESTING IN BED. AWAKE ALERT AND ORIENTED. NO DISTRESS NOTED. CALL LIGHT IN REACH. SIDE RAILS UP X2. BED LOW AND LOCKED. SPOUSE PRESENT AT BEDSIDE AAOX3.
[2020-05-20] MEDS: METHYLPREDNISOLONE SOD SUCC 40 MG/ML VIAL 1ML IV SCH ×2 (08:05→20:12)
--- NOTE | 2020-05-20 08:11 | NUR ---
PATIENT REFUSES TO TURN
[2020-05-20] MEDS ORDERED: MIDAZOLAM HCL 2 MG/2 ML VIAL ONE (08:48)
[2020-05-20] MEDS ORDERED: FENTANYL CITRATE/PF 100MCG/2 ML INJ ONE (08:48)
[2020-05-20] MEDS: FOSINOPRIL SODIUM 10 MG TAB PO SCH (10:00)
[2020-05-20] MEDS: CEFEPIME 1GM/NS 0.9% 50 ML 50 ML IV SCH ×2 (10:31→21:32)
[2020-05-20] MEDS ORDERED: DEXTROSE 50% SYRINGE 50 ML IV PRN (11:00)
--- NOTE | 2020-05-20 11:28 | Progress Note ---
DATE: Pulmonary Progress Note SUBJECTIVE: The patient is breathing better this morning, went for biopsy and developed atrial fibrillation per the report. Now the heart rate is under control. Cardiology has been consulted. PHYSICAL EXAMINATION: VITAL SIGNS: Temperature 97.8, pulse of 103, blood pressure 146/77, respiratory rate of 18, and O2 saturation 95% on 2 L. CHEST: Better air entry bilaterally compared to yesterday. HEART: S1 and S2 audible. ABDOMEN: Soft. EXTREMITIES: No pedal edema. LABORATORY DATA: Reviewed. Creatinine is down to 1.25 and has improved. Anion gap is resolved. Metabolic acidosis has improved as well. ASSESSMENT/PLAN: Mr. Smith is a 79-year-old male, who was admitted with shortness of breath, likely has pneumonia and combination of pneumonia and chronic obstructive pulmonary disease exacerbation. The patient also has lung mass, which is suspicious for malignancy. PLAN: CT-guided biopsy was planned, however, the patient became tachycardic and it was canceled. They will re-attempt once the patient is stabilized. Agree with Cardiology evaluation. I will discontinue DuoNeb and start the patient only on ipratropium nebs. Oxygen as needed to keep the O2 saturation more than or equal to 98%. Detailed discussion was done with the patient's at bedside. MD SALEEM Stokes/CLAUDE /[id number]
[2020-05-20] MEDS: INSULIN LISPRO 100 UNIT/1 ML 3ML VIAL SQ SCH ×3 (11:30→21:00)
[2020-05-20] MEDS: IPRATROPIUM BROMIDE 0.02% 2.5 ML NEB NEB SCH ×2 (13:55→23:10)
[2020-05-20] MEDS ORDERED: METOPROLOL TARTRATE 25 MG TAB PO SCH (14:00)
[2020-05-20] MEDS: AMIODARONE HCL 200 MG TAB PO SCH ×2 (14:45→21:00)
--- NOTE | 2020-05-20 15:12 | Diagnostic Imaging Report ---
Exam: CHEST 2 VIEWS Date: 05/20/2020 3:07 PM INDICATION: ^sob ^[id number] ^1200 Comparison: 05/17/2020 and 05/18/2020 FINDINGS: Lines/Tubes:None Lungs:Stable right suprahilar opacity. No new suspicious infiltrate. Pleura:Stable right trace pleural effusion. Negative for pneumothorax. Heart/Mediastinum:The cardiomediastinal silhouette is normal in size and contour. Bones/Soft Tissues: No acute osseous abnormality. Upper abdomen: Unremarkable. IMPRESSION: Stable right suprahilar mass and trace right pleural effusion. Signed by: Gio Aamto MD on 05/20/2020 3:08 PM
--- NOTE | 2020-05-20 16:19 | Consultation ---
DATE OF CONSULTATION: 05/20/2020 Cardiology Consultation REQUESTING PHYSICIAN: Dr. Thomson. REASON FOR CONSULTATION: Atrial fibrillation with rapid ventricular response. HISTORY OF PRESENT ILLNESS: This is a 79-year-old male with history of coronary artery disease, status post CABG in July 2017, peripheral arterial disease, [employer] dual-chamber pacemaker, COPD, hypertension, and diabetes, who presents with complaints of shortness of breath as well as pain in his left ribs. Evaluation in the ER included a CT of the chest, which demonstrated findings concerning for metastatic malignancy. The patient was planned for biopsy this morning, however, while in IR, he developed atrial fibrillation with rapid ventricular response and procedure was aborted. Cardiology is therefore consulted for evaluation. The patient reports occasional sharp chest pain lasting 15 to 20 minutes at a time a few times a week. These episodes occur at rest. He does endorse dyspnea on exertion with walking to the kitchen for several months as well as palpitations this morning around the time of procedure. He denies any edema or orthopnea, but does notice he has lost 30 pounds in the last 3 months and has a poor appetite. REVIEW OF SYSTEMS: Negative except as per HPI. PAST MEDICAL HISTORY: 1. Coronary artery disease, status post CABG. 2. Peripheral arterial disease. 3. Status post [employer] permanent pacemaker. 4. Hypertension. 5. Diabetes mellitus. ALLERGIES: PLEASE SEE EMR. MEDICATIONS: Please see medication list. SOCIAL HISTORY: Prior smoker. No alcohol. FAMILY HISTORY: Noncontributory to current illness. PHYSICAL EXAMINATION: VITAL SIGNS: Temperature 97.7 degrees, pulse 108, respiratory rate 18, blood pressure 129/80, and oxygen saturation 98% on room air. GENERAL: Chronically ill-appearing man, no acute distress. Awake and alert. HEENT: Normocephalic and atraumatic. LUNGS: Clear to auscultation bilaterally. No wheezes or crackles. CARDIOVASCULAR: Tachycardic, but regular. No murmur. Normal S1 and S2. ABDOMEN: Soft and nontender. EXTREMITIES: No edema. NEUROLOGIC: Nonfocal exam. LABORATORY DATA: WBC 6.37, hemoglobin 11.8, hematocrit 38.5, and platelets 184. Sodium 138, potassium 5.1, chloride 108, CO2 20, BUN 34, and creatinine 1.25. EKG, sinus tachycardia with incomplete right bundle-branch block. Telemetry was personally reviewed and interpreted, revealing sinus tachycardia, episode of atrial fibrillation with rapid ventricular response was observed this morning. IMPRESSION: 1. Atrial fibrillation with rapid ventricular response. 2. Suspected metastatic lung cancer. 3. Coronary artery disease, status post coronary artery bypass grafting. 4. Peripheral arterial disease. 5. Hypertension. 6. Hyperlipidemia. 7. Diabetes mellitus. 8. Chronic obstructive pulmonary disease. RECOMMENDATIONS: Check TSH. Obtain echocardiogram. We will start the patient on scheduled metoprolol for rate control. Monitor the patient closely on telemetry. Continue home cardiac medications otherwise. Thank you for this consult. We will continue to follow. Elza Orellana MD ABS/MODL /[id number]
--- NOTE | 2020-05-20 19:30 | NUR ---
63 FBSB. ORANGE JUICE AND SUGAR PROVIDED BY PCT. WILL CONTINUE TO MONITOR BS.
--- NOTE | 2020-05-20 20:25 | NUR ---
RECHECK FBSB 102. NO ADVERSE S/S PRESENT. SNACK GIVEN.
[2020-05-20] MEDS ORDERED: SODIUM CHLORIDE 0.9% 250ML 250 ML ONE (21:47)
[2020-05-21] VITALS: BP 167/87
[2020-05-21] MEDS: METOPROLOL TARTRATE 25 MG TAB PO SCH ×2 (00:02→05:19)
[2020-05-21 02:00] VITALS: BP 155/84
[2020-05-21] MEDS: HYDROMORPHONE 1MG/1ML INJ IV PRN ×2 (02:04→06:24)
--- NOTE | 2020-05-21 02:11 | NUR ---
BED BATH PROVIDED
[2020-05-21 04:00] VITALS: BP 160/75
--- NOTE | 2020-05-21 04:38 | NUR ---
SPOKE TO MD Demarcus LEVI REGARDING B/P. NEW ORDERS RECEIVED.
[2020-05-21] MEDS ORDERED: METOPROLOL TARTRATE INJ 1 MG/ML VIAL IV ONE (04:45)
[2020-05-21 06:17] LABS: BASOPHILS % 0.1 % (0.0-1.0); HEMATOCRIT 41.6 % (38.2-49.6); HEMOGLOBIN 13.5 g/dL (14.0-18.0); LYMPHOCYTES # (AUTO) 0.6 (1.0-3.2); LYMPHOCYTES % 6.3 % (18.0-39.1); MEAN CORPUSCULAR HEMOGLOBIN 30.2 pg (28-32); MEAN CORPUSCULAR HGB CONC 32.5 g/dL (31-35); MEAN CORPUSCULAR VOLUME 93.1 fL (81-99); MONOCYTES # (AUTO) 0.7 (0.2-0.8); MONOCYTES % 7.6 % (4.4-11.3); NEUTROPHILS # (AUTO) 7.9 (2.1-6.9); NEUTROPHILS % 85.4 % (38.7-80.0); PLATELET COUNT 260 x10e3/uL (140-360); RED BLOOD COUNT 4.47 x10e6/uL (4.3-5.7); RED CELL DISTRIBUTION WIDTH 14.2 % (11.7-14.4)
[2020-05-21 06:39] LABS: ANION GAP 14.3 mmol/L (8-16); CALCIUM 9.2 mg/dL (8.4-10.2); CREATININE, SERUM 1.19 mg/dL (0.72-1.25); POTASSIUM 5.3 mmol/L (3.5-5.1)
[2020-05-21] MEDS: BUDESONIDE 0.5MG/2 ML NEB INH SCH (07:24)
[2020-05-21] MEDS: IPRATROPIUM BROMIDE 0.02% 2.5 ML NEB NEB SCH (07:24)
--- NOTE | 2020-05-21 07:27 | NUR ---
REPORT GIVEN TO DAYSHIFT NURSE. ALERT AND RESTING IN BED. NO SIGNS IV INFILTRATION. NO ADVERSE SIGNS OR SYMPTOMS. ALL SAFETY PRECAUTIONS PRESENT. CALL LIGHT WITHIN REACH. BED ALARM ACTIVATED. FAMILY MEMBER AT BEDSIDE.
[2020-05-21] MEDS: INSULIN LISPRO 100 UNIT/1 ML 3ML VIAL SQ SCH (07:30)
[2020-05-21 08:07] VITALS: BP 150/83
[2020-05-21 08:28] VITALS: BP 150/83
[2020-05-21] MEDS: FOSINOPRIL SODIUM 10 MG TAB PO SCH (09:00)
[2020-05-21] MEDS: METHYLPREDNISOLONE SOD SUCC 40 MG/ML VIAL 1ML IV SCH (09:16)
[2020-05-21] MEDS: CEFEPIME 1GM/NS 0.9% 50 ML 50 ML IV SCH (09:16)
--- NOTE | 2020-05-21 10:18 | NUR ---
Set up the outpatient lung biopsy. Faxed the order to Radiology scheduling and notified Caterina. Caterina acknowledged she received the order.
[2020-05-21] MEDS: AMIODARONE HCL 200 MG TAB PO SCH (10:45)
[2020-05-21] MEDS ORDERED: PERFLUTREN LIPID MICROSPHERES 2 ML VIAL IV ONE (11:15)
[2020-05-21 11:49] VITALS: BP 145/86
[2020-05-21] MEDS ORDERED: METOPROLOL TARTRATE 50 MG TAB PO SCH (12:00)
--- NOTE | 2020-05-21 12:00 | NUR ---
Consent checked, pt ID by 2 identifiers. Definity studied performed by Dr Orellana, [facility] staff to support with injection. Total of 4ml Definity mixture (2ml definity/8ml NS diluted) in divided doses injected into right forearm patent IV. no adverse events. Addendum: 05/21/20 at 1408 by Roque Murrieta RN clarification - order verified, and dr Orlelana confirmed study with Definity at bedside
--- NOTE | 2020-05-21 12:08 | Progress Note ---
DATE: SUBJECTIVE: The patient is breathing well. PHYSICAL EXAMINATION: VITAL SIGNS: Temperature 98.1, pulse of 75, and blood pressure 150/83. CHEST: Clear to auscultation bilaterally. Wheezing has improved. HEART: S1 and S2 audible. NEUROLOGIC: Awake and alert. LABORATORY DATA: Reviewed. ASSESSMENT/PLAN: Mr. Smith is a 79-year-old male with possible pneumonia and chronic obstructive pulmonary disease exacerbation and lung mass, which is suspicious for malignancy. PLAN: Will be CT-guided biopsy. Detailed discussion was carried out with Dr. Beauchamp from Interventional Radiology. He will discuss with the family about the benefit and risk of the biopsy. Oxygen as needed to keep the O2 saturation more than or equal to 92%. Continue the patient on Solu-Medrol and cefepime IV. MD SALEEM Stokes/CLAUDE /[id number]
--- NOTE | 2020-05-21 13:09 | NUR ---
Discharge education provided to the patient and spouse. Prescriptions given along with the discharge packet. Instructions regarding the out-patient appointment for lung biopsy given and written instruction is given as well. Verbalized understanding. PIV to Right wrist removed, pressure applied and gauze dressing applied, no bleeding noted.
--- NOTE | 2020-05-21 13:10 | NUR ---
Transported patient via wheelchair to private vehicle with the spouse. All personal belongings are taken.
--- NOTE | 2020-05-21 13:53 | Progress Note ---
DATE: 05/21/2020 Cardiology Progress Note SUBJECTIVE: The patient is reporting chest pain. He denies any shortness of breath. He is unable to proceed with a biopsy today due to recent aspirin use and scheduled for outpatient biopsy on Sunday instead. OBJECTIVE: VITAL SIGNS: Temperature 98.1 degrees, pulse 75, respiratory rate 16, blood pressure 150/83, and oxygen saturation 99% on 2 L nasal cannula. GENERAL: Chronically ill-appearing man, no acute distress. Awake and alert. LUNGS: Clear to auscultation bilaterally. No wheezes or crackles. CARDIOVASCULAR: Normal rate. Regular rhythm. No murmur. Normal S1 and S2. ABDOMEN: Soft and nontender. EXTREMITIES: No edema. NEURO: Nonfocal exam. CARDIAC MEDICATIONS: Amiodarone 200 mg p.o. q.12 hours, metoprolol tartrate 25 mg p.o. q.6 hours, and lisinopril 10 mg p.o. daily. LABORATORY DATA: WBC 9.24, hemoglobin 13.5, hematocrit 41.6, and platelets 260. Sodium 138, potassium 5.3, chloride 107, CO2 22, BUN 35, creatinine 1.19. Telemetry was personally reviewed and interpreted, revealing normal sinus rhythm. IMPRESSION: 1. Atrial fibrillation with rapid ventricular response, currently sinus rhythm. 2. Suspected metastatic cancer. 3. Coronary artery disease, status post coronary artery bypass grafting. 4. Peripheral arterial disease. 5. Hypertension. 6. Hyperlipidemia. 7. Diabetes mellitus. 8. Chronic obstructive pulmonary disease. RECOMMENDATIONS: TSH is low. Recommend follow up with Endocrinology. In the meantime, continue metoprolol, consolidate to 50 mg p.o. b.i.d. We will stop amiodarone given his thyroid abnormalities. Echocardiogram has been done, however, it was extremely technically difficult. We will obtain further imaging with AFAR. Monitor the patient closely on telemetry. Continue home cardiac medications. Given plan for biopsy. We will hold off on anticoagulation at this time. However, he will need to follow up next week after his biopsy to discuss initiation of anticoagulation. Thank you for this consult. We will continue to follow. Elza Orellana MD ABS/MODL /[id number]
== END 2020-05-21 13:10 | disposition home or self-care (01) | DRG 182 ==
LOC: ER 22:45 → ERHOLD 05-18 02:33 → MED/SURG3 05-18 04:25 → OBSVTOIN 05-19 10:38
DX: C34.90 Malignant neoplasm of unspecified part of unspecified bronchus or lung (principal); I48.91 Unspecified atrial fibrillation; J44.9 Chronic obstructive pulmonary disease, unspecified; E78.5 Hyperlipidemia, unspecified; R00.0 Tachycardia, unspecified; I25.10 Atherosclerotic heart disease of native coronary artery without angina pectoris; Z95.1 Presence of aortocoronary bypass graft; Z95.0 Presence of cardiac pacemaker; E11.9 Type 2 diabetes mellitus without complications; Z53.09 Procedure and treatment not carried out because of other contraindication; E11.51 Type 2 diabetes mellitus with diabetic peripheral angiopathy without gangrene; E86.0 Dehydration; E87.5 Hyperkalemia; I12.9 Hypertensive chronic kidney disease with stage 1 through stage 4 chronic kidney disease, or unspecified chronic kidney disease; N18.30 Chronic kidney disease, stage 3 unspecified; E11.22 Type 2 diabetes mellitus with diabetic chronic kidney disease
CPT/HCPCS: 36415; 71045; 71046; 71250; 80048; 82550; 82553; 82948; 83880; 84443; 84484; 85025; 85610; 93005; 93306; 93307; 94640; 97139; 99284; G0378; J0692; J1170; J2250; J2920; J3010; J7030; J7040; J7050; U0002

== ENCOUNTER → 2020-06-14 | Outpatient (CLI) | payer MEDICARE ==
[~2020-06-14] MED LIST changes: +FENTANYL CITRATE/PF 100MCG/2 ML INJ ONE; +MIDAZOLAM HCL 2 MG/2 ML VIAL ONE
== END ==
LOC: CT 08:05
DX: R91.8 Other nonspecific abnormal finding of lung field (principal)
CPT/HCPCS: 10009; 32405; 71045; 88112; 88172; 88173; 88305; J2250; J3010; U0002; 88342; 99152

== ENCOUNTER 2020-06-21 23:13 | Inpatient (IN) | payer MEDICARE ==
[~2020-06-21] VITALS: Ht 172.7 cm; Wt 77.2 kg
[~2020-06-21 23:13] MED LIST changes: -FENTANYL CITRATE/PF 100MCG/2 ML INJ ONE; -MIDAZOLAM HCL 2 MG/2 ML VIAL ONE
[2020-06-21] MEDS ORDERED: NALOXONE HCL 2MG/2 ML SYRINGE ONE (23:23)
[2020-06-21] MEDS ORDERED: SODIUM CHLORIDE 0.9% 1000ML 1,000 ML ONE ×2 (23:24→23:27)
[2020-06-21] MEDS ORDERED: NALOXONE HCL 2MG/2 ML SYRINGE IV ONE ×2 (23:30)
[2020-06-21] MEDS ORDERED: SODIUM CHLORIDE 0.9% 1000ML 1,000 ML IV ONE ×2 (23:30)
[2020-06-21 23:32] LABS: BASOPHILS % 0.5 % (0.0-1.0); EOSINOPHILS # (AUTO) 0.1 (0.0-0.4); EOSINOPHILS % 1.1 % (0.0-6.0); HEMATOCRIT 31.1 % (38.2-49.6); HEMOGLOBIN 9.6 g/dL (14.0-18.0); LYMPHOCYTES # (AUTO) 1.6 (1.0-3.2); LYMPHOCYTES % 19.9 % (18.0-39.1); MEAN CORPUSCULAR HEMOGLOBIN 29.5 pg (28-32); MEAN CORPUSCULAR HGB CONC 30.9 g/dL (31-35); MEAN CORPUSCULAR VOLUME 95.7 fL (81-99); MONOCYTES # (AUTO) 1.1 (0.2-0.8); MONOCYTES % 13.8 % (4.4-11.3); NEUTROPHILS # (AUTO) 5.1 (2.1-6.9); NEUTROPHILS % 64.2 % (38.7-80.0); PLATELET COUNT 265 x10e3/uL (140-360); RED BLOOD COUNT 3.25 x10e6/uL (4.3-5.7); RED CELL DISTRIBUTION WIDTH 15.9 % (11.7-14.4)
[2020-06-21 23:39] LABS: INR 1.93
[2020-06-21 23:40] LABS: PARTIAL THROMBOPLASTIN TIME 54.9 seconds (23.8-35.5)
[2020-06-21 23:44] LABS: CLARITY,URINE SL CLOUDY (CLEAR); COLOR,URINE YELLOW (YELLOW); KETONES,URINE NEGATIVE (NEGATIVE); LEUKOCYTE ESTERASE ,URINE NEGATIVE (NEGATIVE); NITRITE,URINE NEGATIVE (NEGATIVE); PROTEIN,URINE DIPSTICK 2+ (NEGATIVE); URINE UROBILINOGEN 0.2 mg/dL (0.2 - 1)
[2020-06-21 23:49] LABS: ALKALINE PHOSPHATASE 140 IU/L (40-150); ANION GAP 14.9 mmol/L (8-16); BLOOD UREA NITROGEN 41 mg/dL (7-26); BUN/CREATININE RATIO 15 (6-25); CALCIUM 7.8 mg/dL (8.4-10.2); CARBON DIOXIDE 24 mmol/L (22-29); CHLORIDE 103 mmol/L (98-107); CREATINE KINASE 86 IU/L (30-200); CREATININE, SERUM 2.78 mg/dL (0.72-1.25); EST GLOMERULAR FILTRATION RATE 22 ML/MIN (60-); GLUCOSE 215 mg/dL (74-118); POTASSIUM 4.9 mmol/L (3.5-5.1); SODIUM 137 mmol/L (136-145)
[2020-06-21 23:50] LABS: ALANINE AMINOTRANSFERASE < 6 IU/L (0-55)
[2020-06-21 23:52] LABS: AMORPHOUS SEDIMENT,URINE MODERATE (FEW); BACTERIA,URINE FEW /HPF; EPITHELIAL CELLS,URINE MANY /LPF
[2020-06-21 23:53] LABS: ALBUMIN 2.2 g/dL (3.5-5.0); ALBUMIN/GLOBULIN RATIO 0.6 (0.8-2.0)
[2020-06-22] VITALS (24 sets, daily range): BP systolic 74–114; BP diastolic 44–83
[2020-06-22] MEDS ORDERED: SODIUM CHLORIDE 0.9% 1000ML 1,000 ML IV ONE
[2020-06-22 00:27] LABS: AMPHETAMINES SCREEN,URINE NEGATIVE (NEGATIVE); BENZODIAZEPINES SCREEN,URINE NEGATIVE (NEGATIVE); PHENCYCLIDINE SCREEN,URINE NEGATIVE (NEGATIVE)
[2020-06-22] MEDS ORDERED: ONDANSETRON HCL INJ 2MG/ML 2ML 2 MG/ML VIAL IV PRN (01:45)
[2020-06-22 05:55] LABS: BASOPHILS # (AUTO) 0.1 (0.0-0.1); BASOPHILS % 0.6 % (0.0-1.0); EOSINOPHILS # (AUTO) 0.1 (0.0-0.4); EOSINOPHILS % 0.7 % (0.0-6.0); HEMATOCRIT 37.3 % (38.2-49.6); HEMOGLOBIN 11.4 g/dL (14.0-18.0); LYMPHOCYTES % 9.4 % (18.0-39.1); MEAN CORPUSCULAR HEMOGLOBIN 29.2 pg (28-32); MEAN CORPUSCULAR HGB CONC 30.6 g/dL (31-35); MEAN CORPUSCULAR VOLUME 95.6 fL (81-99); MONOCYTES # (AUTO) 1.2 (0.2-0.8); MONOCYTES % 11.2 % (4.4-11.3); NEUTROPHILS # (AUTO) 8.3 (2.1-6.9); NEUTROPHILS % 77.4 % (38.7-80.0); RED CELL DISTRIBUTION WIDTH 15.6 % (11.7-14.4)
[2020-06-22 05:56] LABS: PLATELET COUNT 296 x10e3/uL (140-360)
[2020-06-22 06:23] LABS: ALBUMIN 2.4 g/dL (3.5-5.0); ALBUMIN/GLOBULIN RATIO 0.6 (0.8-2.0); ANION GAP 17.7 mmol/L (8-16); CALCIUM 7.4 mg/dL (8.4-10.2); CREATININE, SERUM 2.46 mg/dL (0.72-1.25); POTASSIUM 5.7 mmol/L (3.5-5.1)
[2020-06-22] MEDS ORDERED: INSULIN REGULAR, HUMAN 100 UNIT/1 ML 3ML VIAL IV ONE (11:30)
[2020-06-22] MEDS ORDERED: DEXTROSE 50% SYRINGE 50 ML IV ONE (11:30)
[2020-06-22] MEDS: SODIUM CHLORIDE 0.9% 1000ML 1,000 ML IV SCH ×2 (12:07→16:02)
[2020-06-22 12:17] LABS: ANION GAP 16.7 mmol/L (8-16); CALCIUM 7.4 mg/dL (8.4-10.2); CREATININE, SERUM 1.41 mg/dL (0.72-1.25); POTASSIUM 4.7 mmol/L (3.5-5.1)
[2020-06-22 12:44] LABS: CREATINE KINASE MB 1.8 ng/mL (0-5.0)
[2020-06-23] VITALS (22 sets, daily range): BP systolic 96–157; BP diastolic 58–113
[2020-06-23 04:43] LABS: BASOPHILS % 0.5 % (0.0-1.0); EOSINOPHILS # (AUTO) 0.1 (0.0-0.4); EOSINOPHILS % 1.1 % (0.0-6.0); HEMOGLOBIN 10.4 g/dL (14.0-18.0); LYMPHOCYTES # (AUTO) 0.8 (1.0-3.2); LYMPHOCYTES % 12.4 % (18.0-39.1); MEAN CORPUSCULAR HGB CONC 30.6 g/dL (31-35); MEAN CORPUSCULAR VOLUME 94.7 fL (81-99); MONOCYTES # (AUTO) 0.6 (0.2-0.8); NEUTROPHILS # (AUTO) 4.7 (2.1-6.9); NEUTROPHILS % 75.5 % (38.7-80.0); PLATELET COUNT 259 x10e3/uL (140-360); RED BLOOD COUNT 3.59 x10e6/uL (4.3-5.7); RED CELL DISTRIBUTION WIDTH 15.2 % (11.7-14.4)
[2020-06-23 05:07] LABS: ALBUMIN 2.2 g/dL (3.5-5.0); ALBUMIN/GLOBULIN RATIO 0.6 (0.8-2.0); ANION GAP 15.7 mmol/L (8-16); CALCIUM 7.7 mg/dL (8.4-10.2); CREATININE, SERUM 1.42 mg/dL (0.72-1.25); POTASSIUM 4.7 mmol/L (3.5-5.1)
[2020-06-23] MEDS: ALBUTEROL/IPRATROPIUM 3 ML NEB NEB SCH ×3 (08:00→19:00)
[2020-06-23] MEDS ORDERED: FUROSEMIDE INJ 10 MG/ML 2 ML VIAL IV ONE (08:00)
[2020-06-23] MEDS: CALCIUM CARBONATE 500 MG CHEWABLE TABS PO SCH ×2 (08:16→10:13)
[2020-06-23] MEDS: ACETAMINOPHEN/CODEINE 300MG - 30MG TAB PO PRN ×2 (10:41→16:52)
[2020-06-23] MEDS ORDERED: TIZANIDINE HCL4 M1 PO (13:02)
[2020-06-23] MEDS ORDERED: LYRICA75 MG PO (13:02)
[2020-06-23] MEDS ORDERED: METOPROLOL TART25 MG PO (13:02)
[2020-06-23] MEDS ORDERED: BENADRYL25 M1 PO (13:02)
[2020-06-23] MEDS ORDERED: NORCO 10-325 T1 EACH PO (14:45)
[2020-06-24] VITALS: BP 146/89
[2020-06-24] MEDS: ALBUTEROL/IPRATROPIUM 3 ML NEB NEB SCH ×3 (01:20→12:50)
[2020-06-24 04:00] VITALS: BP 146/85
[2020-06-24 08:17] VITALS: BP 167/97
[2020-06-24 08:58] VITALS: BP 167/97
[2020-06-24] MEDS: ACETAMINOPHEN/CODEINE 300MG - 30MG TAB PO PRN (09:40)
[2020-06-24 12:05] VITALS: BP 151/88
[2020-06-24] MEDS ORDERED: ONDANSETRON HCL 4 MG ORAL DISINTEGRATING TAB PO PRN (13:45)
[2020-06-24 15:43] VITALS: BP 158/95
== END 2020-06-24 16:27 | disposition home or self-care (01) | DRG 918 ==
LOC: ER 23:25 → ERHOLD 06-22 01:49 → ICU 06-22 02:02 → MED/SURG2 06-23 20:29
PROC: 02HV33Z Insertion of Infusion Device into Superior Vena Cava, Percutaneous Approach (ICD-10-PCS; principal; 2020-06-22)
DX: T40.2X1A Poisoning by other opioids, accidental (unintentional), initial encounter (principal); N17.9 Acute kidney failure, unspecified; C34.11 Malignant neoplasm of upper lobe, right bronchus or lung; C79.51 Secondary malignant neoplasm of bone; C79.71 Secondary malignant neoplasm of right adrenal gland; C77.9 Secondary and unspecified malignant neoplasm of lymph node, unspecified; E87.2 Acidosis; J44.9 Chronic obstructive pulmonary disease, unspecified; E78.5 Hyperlipidemia, unspecified; E86.0 Dehydration; Z87.891 Personal history of nicotine dependence; F03.90 Unspecified dementia, unspecified severity, without behavioral disturbance, psychotic disturbance, mood disturbance, and anxiety; R53.81 Other malaise; E11.9 Type 2 diabetes mellitus without complications; D63.8 Anemia in other chronic diseases classified elsewhere; D50.9 Iron deficiency anemia, unspecified; N18.9 Chronic kidney disease, unspecified; E83.51 Hypocalcemia; E77.8 Other disorders of glycoprotein metabolism; E88.09 Other disorders of plasma-protein metabolism, not elsewhere classified; Z20.828 Contact with and (suspected) exposure to other viral communicable diseases
CPT/HCPCS: 36415; 51700; 70450; 71045; 80048; 80053; 80307; 81001; 82140; 82550; 82553; 82948; 83605; 84484; 85025; 85610; 85730; 87040; 87086; 93005; 94640; 99285; J1940; J2310; J7030; U0002

== ENCOUNTER 2020-07-03 21:47 | Inpatient (IN) | payer MEDICARE ==
[~2020-07-03] VITALS: Ht 172.7 cm; Wt 77.1 kg
[~2020-07-03 21:47] MED LIST changes: +BENADRYL25 M1 PO; +LYRICA75 MG PO; +METOPROLOL TART25 MG PO; +NORCO 10-325 T1 EACH PO; +TIZANIDINE HCL4 M1 PO
[2020-07-03] MEDS ORDERED: SODIUM CHLORIDE 0.9% 1000ML 1,000 ML IV STA (21:52)
[2020-07-03] MEDS ORDERED: ASPIRIN 81 MG CHEW TAB PO ONE (22:00)
[2020-07-03 22:14] LABS: BASOPHILS % 0.2 % (0.0-1.0); EOSINOPHILS % 0.2 % (0.0-6.0); HEMATOCRIT 30.2 % (38.2-49.6); HEMOGLOBIN 9.1 g/dL (14.0-18.0); LYMPHOCYTES # (AUTO) 0.8 (1.0-3.2); LYMPHOCYTES % 8.9 % (18.0-39.1); MEAN CORPUSCULAR HGB CONC 30.1 g/dL (31-35); MEAN CORPUSCULAR VOLUME 96.2 fL (81-99); MONOCYTES # (AUTO) 0.8 (0.2-0.8); MONOCYTES % 9.1 % (4.4-11.3); PLATELET COUNT 210 x10e3/uL (140-360); RED BLOOD COUNT 3.14 x10e6/uL (4.3-5.7); RED CELL DISTRIBUTION WIDTH 16.2 % (11.7-14.4)
[2020-07-03 22:31] LABS: ALBUMIN 2.1 g/dL (3.5-5.0); ALBUMIN/GLOBULIN RATIO 0.6 (0.8-2.0); ALKALINE PHOSPHATASE 121 IU/L (40-150); ANION GAP 13.4 mmol/L (8-16); BLOOD UREA NITROGEN 22 mg/dL (7-26); BUN/CREATININE RATIO 19 (6-25); CALCIUM 7.2 mg/dL (8.4-10.2); CARBON DIOXIDE 21 mmol/L (22-29); CHLORIDE 108 mmol/L (98-107); CREATINE KINASE 29 IU/L (30-200); CREATININE, SERUM 1.14 mg/dL (0.72-1.25); EST GLOMERULAR FILTRATION RATE > 60 ML/MIN (60-); GLUCOSE 171 mg/dL (74-118); POTASSIUM 4.4 mmol/L (3.5-5.1); SODIUM 138 mmol/L (136-145)
[2020-07-03 22:38] LABS: ALANINE AMINOTRANSFERASE < 6 IU/L (0-55)
[2020-07-03] MEDS ORDERED: IOPAMIDOL 370 MG/ML 200 ML INFUS..BTL INJ ONE (22:59)
[2020-07-03] MEDS ORDERED: SODIUM CHLORIDE 0.9% 50ML 50 ML ONE (22:59)
[2020-07-04] VITALS (9 sets, daily range): BP systolic 108–138; BP diastolic 68–75
[2020-07-04] MEDS: PIPER-TAZ 3.375 GM 50 ML IV SCH ×4 (00:55→16:11)
[2020-07-04] MEDS: SODIUM CHLORIDE 0.9% 1000ML 1,000 ML IV SCH ×3 (03:50→16:11)
[2020-07-04] MEDS ORDERED: PREGABALIN75 MG (04:01)
[2020-07-04] MEDS ORDERED: OXYCODONE-ACET1 EAC3 (04:01)
[2020-07-04] MEDS ORDERED: TIZANIDINE HCL4 MG (04:01)
[2020-07-04] MEDS ORDERED: LOPRESSOR25 MG (04:01)
[2020-07-04 08:17] LABS: BASOPHILS % 0.5 % (0.0-1.0); EOSINOPHILS % 0.5 % (0.0-6.0); HEMATOCRIT 36.1 % (38.2-49.6); HEMOGLOBIN 10.5 g/dL (14.0-18.0); LYMPHOCYTES # (AUTO) 0.7 (1.0-3.2); LYMPHOCYTES % 8.5 % (18.0-39.1); MEAN CORPUSCULAR HEMOGLOBIN 28.8 pg (28-32); MEAN CORPUSCULAR HGB CONC 29.1 g/dL (31-35); MEAN CORPUSCULAR VOLUME 98.9 fL (81-99); MONOCYTES # (AUTO) 0.9 (0.2-0.8); NEUTROPHILS # (AUTO) 6.8 (2.1-6.9); NEUTROPHILS % 79.2 % (38.7-80.0); PLATELET COUNT 200 x10e3/uL (140-360); RED BLOOD COUNT 3.65 x10e6/uL (4.3-5.7); RED CELL DISTRIBUTION WIDTH 16.4 % (11.7-14.4)
[2020-07-04] MEDS ORDERED: HYDROCODONE/APAP 10MG-325MG TAB PO PRN (08:30)
[2020-07-04] MEDS ORDERED: TIZANIDINE HCL 4 MG TAB PO PRN (08:30)
[2020-07-04] MEDS ORDERED: DIPHENHYDRAMINE HCL 25 MG CAP PO PRN (08:30)
[2020-07-04 08:36] LABS: ALBUMIN 2.3 g/dL (3.5-5.0); ALBUMIN/GLOBULIN RATIO 0.6 (0.8-2.0); ALKALINE PHOSPHATASE 133 IU/L (40-150); ANION GAP 16.2 mmol/L (8-16); BLOOD UREA NITROGEN 19 mg/dL (7-26); BUN/CREATININE RATIO 18 (6-25); CALCIUM 7.7 mg/dL (8.4-10.2); CARBON DIOXIDE 18 mmol/L (22-29); CHLORIDE 109 mmol/L (98-107); CREATININE, SERUM 1.05 mg/dL (0.72-1.25); EST GLOMERULAR FILTRATION RATE > 60 ML/MIN (60-); GLUCOSE 119 mg/dL (74-118); POTASSIUM 4.2 mmol/L (3.5-5.1); SODIUM 139 mmol/L (136-145)
[2020-07-04] MEDS ORDERED: ALBUTEROL/IPRATROPIUM 3 ML NEB NEB PRN (08:45)
[2020-07-04 08:53] LABS: CREATINE KINASE MB 0.1 ng/mL (0-5.0)
[2020-07-04] MEDS: FOSINOPRIL SODIUM 10 MG TAB PO SCH (09:00)
[2020-07-04 09:14] LABS: ALANINE AMINOTRANSFERASE < 6 IU/L (0-55)
[2020-07-04] MEDS ORDERED: METOPROLOL TARTRATE 25 MG TAB PO SCH (10:00)
[2020-07-04] MEDS: PREGABALIN 75 MG CAP PO SCH ×3 (10:43→21:24)
[2020-07-04] MEDS: METFORMIN HCL 500 MG TAB PO SCH ×2 (10:43→16:11)
[2020-07-04] MEDS: GEMFIBROZIL 600 MG TAB PO SCH ×2 (10:43→16:11)
[2020-07-04] MEDS: ASPIRIN 81 MG CHEW TAB PO SCH (10:43)
[2020-07-04 11:14] LABS: ANISOCYTOSIS SLIGHT; HYPOCHROMASIA SLIGHT; RBC MORPHOLOGY COMMENT ABNORMAL
[2020-07-04 11:15] LABS: OVALOCYTES FEW; PLATELET ESTIMATE ADEQUATE; PLATELET MORPHOLOGY COMMENT FEW LARGE
[2020-07-04] MEDS ORDERED: ACETAMINOPHEN/CODEINE 300MG - 30MG TAB PO PRN (12:45)
[2020-07-04] MEDS: METOPROLOL TARTRATE 25 MG TAB PO SCH (16:11)
[2020-07-04 17:45] LABS: CREATINE KINASE MB 1.6 ng/mL (0-5.0)
[2020-07-04] MEDS: ATORVASTATIN 20 MG TAB PO SCH (21:24)
[2020-07-05] VITALS (9 sets, daily range): BP systolic 94–145; BP diastolic 52–87
[2020-07-05] MEDS: PIPER-TAZ 3.375 GM 50 ML IV SCH ×5 (00:02→23:48)
[2020-07-05] MEDS: SODIUM CHLORIDE 0.9% 1000ML 1,000 ML IV SCH (05:43)
[2020-07-05 06:27] LABS: INR 1.09; PROTHROMBIN TIME 14.8 seconds (11.9-14.5)
[2020-07-05] MEDS: METFORMIN HCL 500 MG TAB PO SCH ×2 (08:52→17:37)
[2020-07-05] MEDS: PREGABALIN 75 MG CAP PO SCH ×3 (09:02→20:54)
[2020-07-05] MEDS: GEMFIBROZIL 600 MG TAB PO SCH ×2 (09:02→17:37)
[2020-07-05] MEDS: FOSINOPRIL SODIUM 10 MG TAB PO SCH (09:04)
[2020-07-05] MEDS: METOPROLOL TARTRATE 25 MG TAB PO SCH ×2 (09:04→17:44)
[2020-07-05] MEDS: LIDOCAINE 4% PATCH TP SCH (12:32)
[2020-07-05 15:13] LABS: BODY FLUID APPEARANCE CLOUDY; BODY FLUID COLOR STRAW; BODY FLUID TYPE PLEURAL
[2020-07-05 15:14] LABS: RBC,BODY FLUID 965 cells/uL; WBC,BODY FLUID 262 cells/uL
[2020-07-05] MEDS ORDERED: FUROSEMIDE INJ 10 MG/ML 4 ML VIAL IV STA (15:19)
[2020-07-05] MEDS ORDERED: FUROSEMIDE INJ 10 MG/ML 4 ML VIAL ONE (15:30)
[2020-07-05 16:14] LABS: LYMPHOCYTES,BODY FLUID 55 %; MONO/MACROPHG,BODY FLUID 10 %; NEUTROPHILS,BODY FLUID 35 %
[2020-07-05] MEDS: ATORVASTATIN 20 MG TAB PO SCH (20:54)
[2020-07-06] VITALS: BP 99/53
[2020-07-06 04:00] VITALS: BP 127/69
[2020-07-06] MEDS: PIPER-TAZ 3.375 GM 50 ML IV SCH ×3 (05:24→17:42)
[2020-07-06 08:16] VITALS: BP 127/69
[2020-07-06 08:34] VITALS: BP 112/54
[2020-07-06] MEDS: METFORMIN HCL 500 MG TAB PO SCH ×2 (08:42→16:48)
[2020-07-06] MEDS: ASPIRIN 81 MG CHEW TAB PO SCH (08:42)
[2020-07-06] MEDS: GEMFIBROZIL 600 MG TAB PO SCH ×2 (08:43→16:48)
[2020-07-06] MEDS: LIDOCAINE 4% PATCH TP SCH (08:44)
[2020-07-06] MEDS: METOPROLOL TARTRATE 25 MG TAB PO SCH ×2 (08:44→16:49)
[2020-07-06] MEDS: FOSINOPRIL SODIUM 10 MG TAB PO SCH (08:44)
[2020-07-06] MEDS: PREGABALIN 75 MG CAP PO SCH ×2 (08:44→15:31)
[2020-07-06] MEDS ORDERED: COLLAGENASE 5 GM TUBE TOP SCH (09:00)
[2020-07-06] MEDS ORDERED: BALSAM PERU/CASTOR OIL 60 GM OINT...G. TP SCH (09:00)
[2020-07-06 16:01] VITALS: BP 133/89
[2020-07-06] MEDS ORDERED: FUROSEMIDE INJ 10 MG/ML 4 ML VIAL IV ONE (16:30)
== END 2020-07-06 20:19 | disposition home or self-care (01) | DRG 180 ==
LOC: ER 21:54 → ERHOLD 07-04 01:57 → MED/SURG 07-04 03:16
PROC: 0W993ZZ Drainage of Right Pleural Cavity, Percutaneous Approach (ICD-10-PCS; principal; 2020-07-03)
DX: C34.11 Malignant neoplasm of upper lobe, right bronchus or lung (principal); J15.9 Unspecified bacterial pneumonia; G93.41 Metabolic encephalopathy; C79.51 Secondary malignant neoplasm of bone; C79.71 Secondary malignant neoplasm of right adrenal gland; N13.30 Unspecified hydronephrosis; J91.0 Malignant pleural effusion; E77.8 Other disorders of glycoprotein metabolism; E11.65 Type 2 diabetes mellitus with hyperglycemia; E83.51 Hypocalcemia; E88.09 Other disorders of plasma-protein metabolism, not elsewhere classified; E83.59 Other disorders of calcium metabolism; I10 Essential (primary) hypertension; J44.9 Chronic obstructive pulmonary disease, unspecified; E78.5 Hyperlipidemia, unspecified; R41.82 Altered mental status, unspecified; Z87.891 Personal history of nicotine dependence; I25.10 Atherosclerotic heart disease of native coronary artery without angina pectoris; D63.8 Anemia in other chronic diseases classified elsewhere; E11.42 Type 2 diabetes mellitus with diabetic polyneuropathy; Z20.822 Contact with and (suspected) exposure to COVID-19; Z79.82 Long term (current) use of aspirin; Z79.84 Long term (current) use of oral hypoglycemic drugs
CPT/HCPCS: 32555; 36415; 71045; 71260; 80053; 82550; 82553; 82945; 82948; 83605; 83615; 84157; 84484; 85025; 85610; 87040; 87070; 87116; 87205; 87206; 89051; 96361; 99251; 99285; J1940; J2543; J7030; Q9967; U0002